=== PATIENT | female | born 1995 | race American Indian/Alaskan Native ===

== ENCOUNTER 2017-08-06 12:00 | Inpatient (IN) | payer MEDICAID ==
[2017-08-06] MEDS ORDERED: Methylergonovine 0.2 MG/1 ML Amp IM PRN (14:12)
[2017-08-06] MEDS ORDERED: Sodium Chloride 0.9% 2.5 ML Syringe FLUSH PRN (14:12)
[2017-08-06] MEDS ORDERED: Misoprostol 200 MCG Tab PO PRN (14:12)
[2017-08-06] MEDS ORDERED: Sodium Chloride 0.9% 10 ML Syringe FLUSH PRN (14:12)
[2017-08-06] MEDS ORDERED: Carboprost Tromethamine 250 MCG/1 ML Amp IM PRN (14:12)
[2017-08-06] MEDS ORDERED: Tranexamic Acid 1,000 MG in Sodium Chloride 0.9% 100 ML IV PRN (14:12)
[2017-08-06] MEDS ORDERED: Butorphanol 1 MG/ML SDV IVPUSH PRN (14:12)
[2017-08-06] MEDS ORDERED: Terbutaline 1 MG/ML SDV SUBCUT PRN (14:12)
[2017-08-06] MEDS ORDERED: Lidocaine 1% 50 ML MDV INJECT PRN (14:12)
[2017-08-06] MEDS ORDERED: Water For Irrigation,Sterile 1,000 ML Container IRR PRN (14:12)
[2017-08-06] MEDS ORDERED: Oxytocin/0.9 % Sodium Chloride 30 UNIT/500 ML BAG IV SCH ×2 (14:15)
[2017-08-06] MEDS ORDERED: Ampicillin 2 GM in Sodium Chloride 0.9% 100 ML IV ONE (14:30)
[2017-08-06] MEDS: Ampicillin 1 GM in Sodium Chloride 0.9% 50 ML IV SCH ×2 (18:41→22:34)
[2017-08-06] MEDS: Lactated Ringers 1,000 ML IV SCH ×2 (18:43→19:28)
[2017-08-06] MEDS ORDERED: Acetaminophen 325 MG Tab ONE (19:04)
--- NOTE | 2017-08-06 19:29 | PCM.PREANE ---
Preanesthetic Assessment - Anesthesia/Transfusion/Family Hx Anesthesia History: No Prior Anesthesia Transfusion History: No Prior Transfusion(s) - Physical Assessment Height: 1.68 m Weight: 99.337 kg Airway Class: Mallampati = 2 Dentition: Reports: Normal Dentition - Lab Values: Laboratory Last Values WBC 9.99 K/uL (4.0-11.0) 08/06/17 14:29 RBC 4.69 M/uL (4.30-5.90) 08/06/17 14:29 Hgb 12.9 g/dL (12.0-16.0) 08/06/17 14:29 Hct 37.8 % (36.0-46.0) 08/06/17 14:29 MCV 80.6 fL (80.0-98.0) 08/06/17 14:29 MCH 27.5 pg (27.0-32.0) 08/06/17 14:29 MCHC 34.1 g/dL (31.0-37.0) 08/06/17 14:29 RDW Std Deviation 42.6 fl (28.0-62.0) 08/06/17 14:29 RDW Coeff of Dileep 15 % (11.0-15.0) 08/06/17 14:29 Plt Count 254 K/uL (150-400) 08/06/17 14:29 MPV 10.00 fL (7.40-12.00) 08/06/17 14:29 Nucleated RBC % 0.0 /100WBC 08/06/17 14:29 Nucleated RBCs # 0 K/uL 08/06/17 14:29 Membrane Rupture POSITIVE 08/06/17 12:36 Blood Type O POSITIVE 08/06/17 14:29 Antibody Screen NEGATIVE 08/06/17 14:29 - Allergies Allergies/Adverse Reactions: Allergies Allergy/AdvReac Type Severity Reaction Status Date / Time No Known Allergies Allergy Verified 08/06/17 12:48 - Acknowledgements Anesthesia Type Planned: Epidural Pt an Appropriate Candidate for the Planned Anesthesia: Yes Alternatives and Risks of Anesthesia Discussed w Pt/Guardian: Yes Pt/Guardian Understands and Agrees with Anesthesia Plan: Yes PreAnesthesia Questionnaire - Past Health History Medical/Surgical History: Denies Medical/Surgical History Genitourinary History: Reports: Pyelonephritis 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: Endocrine/Metabolic History: Reports: Obesity/BMI 30+ - Infectious Disease History Infectious Disease History: Reports: Chicken Pox - Past Surgical History HEENT Surgical History: Reports: Other (See Below) Other HEENT Surgeries/Procedures: Mandibular mass - SUBSTANCE USE Smoking Status *Q: Former Smoker Tobacco Use Within Last Twelve Months: Cigarettes Second Hand Smoke Exposure: No Recreational Drug Use History: Yes Recreational Drug Type: Reports: Marijuana/Hashish - HOME MEDS Home Medications: Home Meds PNV #116/Iron Fumarate/FA/DHA [Expecta Combo Pack] 1 each PO DAILY [History] - CURRENT (IN HOUSE) MEDS Current Meds: Current Medications Butorphanol Tartrate (Stadol) 1 mg IVPUSH Q1H PRN PRN Reason: Pain Carboprost Tromethamine (Hemabate Ds) 250 mcg IM ASDIRECTED PRN PRN Reason: Post Hemorrhage Tranexamic Acid 1,000 mg/ (Sodium Chloride) 110 mls @ 660 mls/hr IV ONETIME PRN PRN Reason: Bleeding Lactated Ringer's (Ringers, Lactated) 1,000 mls @ 150 mls/hr IV ASDIRECTED LANI Last Admin: 08/06/17 19:28 Dose: 150 mls/hr Oxytocin/Sodium Chloride (Oxytocin 30 Unit/500 Ml-Ns) 30 unit in 500 mls @ 250 mls/hr IV TITRATE LANI Oxytocin/Sodium Chloride (Oxytocin 30 Unit/500 Ml-Ns) 30 unit in 500 mls @ 2 mls/hr IV TITRATE LANI; Protocol Last Titration: 08/06/17 17:48 Dose: 6 munits/min, 6 mls/hr Ampicillin Sodium 1 gm/ Sodium (Chloride) 50 mls @ 100 mls/hr IV Q4H LANI Last Admin: 08/06/17 18:41 Dose: 100 mls/hr Lidocaine HCl (Xylocaine 1%) 50 ml INJECT .ONCE PRN PRN Reason: Laceration repair Methylergonovine Maleate (Methergine) 0.2 mg IM ASDIRECTED PRN PRN Reason: Post Hemorrhage Misoprostol (Cytotec) 200 mcg PO .ONCE PRN PRN Reason: Post Hemorrhage Sodium Chloride (Saline Flush) 10 ml FLUSH ASDIRECTED PRN PRN Reason: Keep Vein Open Sodium Chloride (Saline Flush) 2.5 ml FLUSH ASDIRECTED PRN PRN Reason: Keep Vein Open Sterile Water (Sterile Water For Irrigation) 1,000 ml IRR ASDIRECTED PRN PRN Reason: delivery Terbutaline Sulfate (Brethine) 0.25 mg SUBCUT ASDIRECTED PRN PRN Reason: Tacysystole Discontinued Medications Acetaminophen (Tylenol) Confirm Administered Dose 325 mg .ROUTE .STK-MED ONE Stop: 08/06/17 19:05 Ampicillin Sodium 2 gm/ Sodium (Chloride) 100 mls @ 200 mls/hr IV ONETIME ONE Stop: 08/06/17 14:59 Last Admin: 08/06/17 15:05 Dose: 200 mls/hr Fentanyl/Bupivacaine HCl (Cqtkssdz-Aiwuy-Ra 2 Mcg/Ml-0.125%) Confirm Administered Dose 100 mls @ as directed EP .STK-MED ONE Stop: 08/06/17 19:07
--- NOTE | 2017-08-06 19:32 | PCM.PRNOTE ---
- Free Text/Narrative Note: Anes Note Lena moore epidural for L&D. Risks and methods were discussed. Sitting Position. Sterile Technique. Bet prep X 3. Level L3-L4, midline approach. Local 1 cc 1% lido. Epidural space easily achieved single attempt wtih ease GATITO technique. Cather threaded 3 cm with ease. Sterile dressing applied. Test nagy 3 cc 1.5 lido with epi negative. Load 10 cc pump solution, in slow divided doses. Pumps started at 8 cc hr with 6 cc q 20 minute prn bolus. Patient reports excellent analgesia. Kiran Ortiz CRNA
[2017-08-07] MEDS: Ampicillin 1 GM in Sodium Chloride 0.9% 50 ML IV SCH (02:46)
[2017-08-07] MEDS: Lactated Ringers 1,000 ML IV SCH (02:50)
[2017-08-07] MEDS ORDERED: Methylergonovine 0.2 MG/1 ML Amp IM PRN (04:56)
[2017-08-07] MEDS ORDERED: oxyCODONE 5 MG Tab PO PRN (04:56)
[2017-08-07] MEDS ORDERED: Docusate Sodium 100 MG Cap PO PRN (04:56)
[2017-08-07] MEDS ORDERED: Bisacodyl 10 MG Supp RECTAL PRN (04:56)
[2017-08-07] MEDS ORDERED: Ibuprofen 400 MG Tab PO PRN (04:56)
[2017-08-07] MEDS ORDERED: Benzocaine/Menthol 20%-0.5% Spray 78 GM Cannister TOP PRN (04:56)
[2017-08-07] MEDS ORDERED: Witch Hazel Medicated Pads 40/Jar TOP PRN (04:56)
[2017-08-07] MEDS ORDERED: Acetaminophen 500 MG Tab PO PRN ×2 (04:56)
[2017-08-07] MEDS ORDERED: Lanolin 100% Cream 7 GM Tube TOP PRN (04:56)
--- NOTE | 2017-08-07 06:42 | PCM.PRNOTE ---
- Free Text/Narrative Note: Anes Note Epidural Bag changed. New bag placed at 0255. Rate is 8 cc / hr with 6 cc q 20 min prn bolus. Patient reports excellent analgesia. Kiran Ortiz CRNA
--- NOTE | 2017-08-07 06:43 | PCM.POSTAN ---
POST ANESTHESIA ASSESSMENT - MENTAL STATUS Mental Status: Alert - RESPIRATORY Respiratory Status: Respiratory Rate WNL - CARDIOVASCULAR CV Status: Pulse Rate WNL - GASTROINTESTINAL GI Status: No Symptoms - POST OP HYDRATION Hydration Status: Adequate & Stable
--- NOTE | 2017-08-07 06:43 | PCM48HPAN ---
Post Anesthesia Note - EVALUATION WITHIN 48HRS OF ANESTHETIC Vital Signs in Normal Range: Yes Patient Participated in Evaluation: Yes Respiratory Function Stable: Yes Airway Patent: Yes Cardiovascular Function Stable: Yes Hydration Status Stable: Yes Pain Control Satisfactory: Yes Nausea and Vomiting Control Satisfactory: Yes Mental Status Recovered: Yes
--- NOTE | 2017-08-07 10:44 | OR ---
SURGEON: Simin Ridley M.D. DATE OF PROCEDURE: 08/07/2017 PREOPERATIVE DIAGNOSES: Thirty-eight and 4/7 week intrauterine , premature rupture of membranes with induction. POSTOPERATIVE DIAGNOSES: Thirty-eight and 4/7 week intrauterine , premature rupture of membranes with induction. PROCEDURE: Pitocin induction of labor, term spontaneous vaginal delivery. SURGEON: Addie Ridley MD. EVENT PLANNING MANAGER: SHIVANI Cho. ANESTHESIA: Epidural. ESTIMATED BLOOD LOSS: Less than 300 cc. FINDINGS: Live-born male, scores 8 and 9, weighing 3730 g. Placenta spontaneous, Schultze, intact with 3 vessels. Perineum intact. BRIEF HISTORY: This is a 22-year-old female, G1, P0. She presents in transfer of care at 38 weeks' gestation. Some of her laboratory studies, her 28-week labs were not available. Glucola was 139; however, her hemoglobin A1c was normal at 5.5. This lab was drawn 2 days prior to admission. Additionally, laboratory studies in [place] in January showed that she was positive for HSV-1 and HSV-2. On serology, this was repeated and was persistently positive. She denied any irritation, itching, discharge, or lesions. White light examination at the time of admission was clear, and she was admitted for Pitocin induction, initially 3 cm, 80%, -2 station. She progressed into active labor. She received an epidural for pain control. She had category 1 heart tones throughout labor. She progressed to complete. DESCRIPTION OF PROCEDURE: With the patient in dorsolithotomy position, the patient pushed over a 20-minute time period to a 5+ station, at which time the head was delivered spontaneously and atraumatically over the perineum with support with subsequent delivery of the infant's shoulders and body without any difficulty. The was bulb suctioned by nose and mouth. The cord was clamped x2 and cut, and the was handed to the mother in the presence of the nurse attending delivery. The infant is a live-born male, scores 8 and 9, weighing 3730 g. Cord blood was collected for cord ABGs, as well as routine cord blood sampling. Pitocin was initiated after delivery of the infant to assist with delivery of the placenta, which was delivered spontaneously, Schultze, intact with 3 vessels. Upon inspection of the pelvis and perineum, there were no periurethral, vaginal sidewall, cervical, rectal, or perineal lacerations. EBL was less than 300 mL. There were no known complications. Mother and remained in LDRP in good condition. JEAN CLAUDE SKELTON /[id number]
[2017-08-07] MEDS: Ibuprofen 800 MG Tab PO PRN ×2 (13:43→23:25)
--- NOTE | 2017-08-08 08:03 | PCM.PNPP ---
<Lacey Yarbrough - Last Filed: 08/08/17 07:57> - General Info Date of Service: 08/08/17 Admission Dx/Problem (Free Text): 38/4 IUP, PROM, IOL with , +HSV (no active lesions). Subjective Update: Patient is doing well. Pain is tolerable with medications. Bottle feeding. Lochia - WNL. Tolerating food with no n/v. Urinating. No bowel movement, but flatus is present. Ambulating. Anticipate discharge today. Functional Status: Reports: Pain Controlled, Tolerating Diet, Ambulating - Review of Systems General: Denies: Fever, Chills HEENT: Denies: Headaches Pulmonary: Denies: Shortness of Breath, Pleuritic Chest Pain Cardiovascular: Denies: Chest Pain, Palpitations, Lightheadedness Gastrointestinal: Reports: Flatus. Denies: Abdominal Pain, Nausea, Vomiting - General Info Date of Service: 08/08/17 - Patient Data Vital Signs - Most Recent: Last Vital Signs Temp 36.6 C 08/07/17 16:33 Pulse 83 08/08/17 06:14 Resp 15 08/08/17 06:14 BP 124/65 08/08/17 06:14 Pulse Ox 98 08/08/17 06:14 Weight - Most Recent: 99.337 kg Lab Results - Last 24 Hours: Laboratory Results - last 24 hr 08/08/17 Range/Units 05:00 Hgb 10.7 L (12.0-16.0) g/dL Hct 32.3 L (36.0-46.0) % Med Orders - Current: Current Medications Acetaminophen (Tylenol Extra Strength) 500 mg PO Q4H PRN PRN Reason: Pain Acetaminophen (Tylenol Extra Strength) 1,000 mg PO Q4H PRN PRN Reason: Pain Benzocaine/Menthol (Dermoplast Pain Relief 20%-0.5% [place]) 78 gm TOP ASDIRECTED PRN PRN Reason: Perineal Comfort Measure Bisacodyl (Dulcolax) 10 mg RECTAL .ONCE PRN PRN Reason: Constipation Docusate Sodium (Colace) 100 mg PO BID PRN PRN Reason: Constipation Emollient Ointment (Lansinoh Hpa) 0 gm TOP ASDIRECTED PRN PRN Reason: Sore Nipples Ibuprofen (Motrin) 400 mg PO Q4H PRN PRN Reason: Pain Ibuprofen (Motrin) 800 mg PO Q6H PRN PRN Reason: Pain Last Admin: 08/07/17 23:25 Dose: 800 mg Methylergonovine Maleate (Methergine) 0.2 mg IM .ONCE PRN PRN Reason: Excessive Vaginal Bleeding Oxycodone HCl (Oxycodone) 5 mg PO Q2H PRN PRN Reason: Pain Witch Ginger (Tucks) 1 pad TOP ASDIRECTED PRN PRN Reason: comfort care Discontinued Medications Acetaminophen (Tylenol) Confirm Administered Dose 325 mg .ROUTE .STK-MED ONE Stop: 08/06/17 19:05 Butorphanol Tartrate (Stadol) 1 mg IVPUSH Q1H PRN PRN Reason: Pain Carboprost Tromethamine (Hemabate Ds) 250 mcg IM ASDIRECTED PRN PRN Reason: Post Hemorrhage Tranexamic Acid 1,000 mg/ (Sodium Chloride) 110 mls @ 660 mls/hr IV ONETIME PRN PRN Reason: Bleeding Lactated Ringer's (Ringers, Lactated) 1,000 mls @ 150 mls/hr IV ASDIRECTED LANI Last Admin: 08/07/17 02:50 Dose: 150 mls/hr Oxytocin/Sodium Chloride (Oxytocin 30 Unit/500 Ml-Ns) 30 unit in 500 mls @ 250 mls/hr IV TITRATE LANI Oxytocin/Sodium Chloride (Oxytocin 30 Unit/500 Ml-Ns) 30 unit in 500 mls @ 2 mls/hr IV TITRATE LANI; Protocol Last Titration: 08/07/17 04:24 Dose: 999 munits/min, 999 mls/hr Ampicillin Sodium 2 gm/ Sodium (Chloride) 100 mls @ 200 mls/hr IV ONETIME ONE Stop: 08/06/17 14:59 Last Admin: 08/06/17 15:05 Dose: 200 mls/hr Ampicillin Sodium 1 gm/ Sodium (Chloride) 50 mls @ 100 mls/hr IV Q4H LANI Last Admin: 08/07/17 02:46 Dose: 100 mls/hr Fentanyl/Bupivacaine HCl (Xliuuols-Jgssy-Kg 2 Mcg/Ml-0.125%) Confirm Administered Dose 100 mls @ as directed EP .STK-MED ONE Stop: 08/06/17 19:07 Fentanyl/Bupivacaine HCl (Zzlaufgh-Qrsqw-Du 2 Mcg/Ml-0.125%) Confirm Administered Dose 100 mls @ as directed [facility] ONE Stop: 08/07/17 02:53 Lidocaine HCl (Xylocaine 1%) 50 ml INJECT .ONCE PRN PRN Reason: Laceration repair Methylergonovine Maleate (Methergine) 0.2 mg IM ASDIRECTED PRN PRN Reason: Post Hemorrhage Misoprostol (Cytotec) 200 mcg PO .ONCE PRN PRN Reason: Post Hemorrhage Sodium Chloride (Saline Flush) 10 ml FLUSH ASDIRECTED PRN PRN Reason: Keep Vein Open Sodium Chloride (Saline Flush) 2.5 ml FLUSH ASDIRECTED PRN PRN Reason: Keep Vein Open Sterile Water (Sterile Water For Irrigation) 1,000 ml IRR ASDIRECTED PRN PRN Reason: delivery Last Admin: 08/07/17 04:22 Dose: 1,000 ml Terbutaline Sulfate (Brethine) 0.25 mg SUBCUT ASDIRECTED PRN PRN Reason: Tacysystole - Infant Interaction Infant Disposition, : [place] in Room with Family Interaction: Holding Feeding: Bottle Fed Infant - Recovery Exam Fundal Tone: Firm Fundal Level: 3 Fingerbreadths Below Umbilicus Fundal Placement: Midline Lochia Amount: Scant Lochia Color: Rubra/Red Episiotomy/Laceration: None Bladder Status: Voiding Urinary Elimination: Voided - Exam General: Alert, Oriented, No Acute Distress Lungs: Clear to Auscultation, Normal Respiratory Effort Cardiovascular: Regular Rate, Regular Rhythm GI/Abdominal Exam: Soft, Non-Tender Extremities: No Pedal Edema Skin: Warm, Dry Psy/Mental Status: Alert - Assessment Assessment:: 38/4 IUP, PROM, IOL with . PPD #1. Stable. Discharge today. - Plan Plan:: Reviewed discharge instructions. Pelvic rest for 6 weeks. Take OTC tylenol/ ibuprofen as needed for pain. Call if fever greater than 101 or bleeding through a heavy pad in an hour. Reviewed post- depression symptoms. Follow-up appointment in 6 weeks. <Simin Ridley - Last Filed: 08/08/17 08:07> - Patient Data Vital Signs - Most Recent: Last Vital Signs Temp 36.6 C 04/27/18 07:30 Pulse 74 08/08/17 07:30 Resp 16 08/08/17 07:30 BP 116/71 08/08/17 07:30 Pulse Ox 97 08/08/17 07:30 Lab Results - Last 24 Hours: Laboratory Results - last 24 hr 08/08/17 Range/Units 05:00 Hgb 10.7 L (12.0-16.0) g/dL Hct 32.3 L (36.0-46.0) % Med Orders - Current: Current Medications Acetaminophen (Tylenol Extra Strength) 500 mg PO Q4H PRN PRN Reason: Pain Acetaminophen (Tylenol Extra Strength) 1,000 mg PO Q4H PRN PRN Reason: Pain Benzocaine/Menthol (Dermoplast Pain Relief 20%-0.5% [place]) 78 gm TOP ASDIRECTED PRN PRN Reason: Perineal Comfort Measure Bisacodyl (Dulcolax) 10 mg RECTAL .ONCE PRN PRN Reason: Constipation Docusate Sodium (Colace) 100 mg PO BID PRN PRN Reason: Constipation Emollient Ointment (Lansinoh Hpa) 0 gm TOP ASDIRECTED PRN PRN Reason: Sore Nipples Ibuprofen (Motrin) 400 mg PO Q4H PRN PRN Reason: Pain Ibuprofen (Motrin) 800 mg PO Q6H PRN PRN Reason: Pain Last Admin: 08/07/17 23:25 Dose: 800 mg Methylergonovine Maleate (Methergine) 0.2 mg IM .ONCE PRN PRN Reason: Excessive Vaginal Bleeding Oxycodone HCl (Oxycodone) 5 mg PO Q2H PRN PRN Reason: Pain Witch Ginger (Tucks) 1 pad TOP ASDIRECTED PRN PRN Reason: comfort care Discontinued Medications Acetaminophen (Tylenol) Confirm Administered Dose 325 mg .ROUTE .STK-MED ONE Stop: 08/06/17 19:05 Butorphanol Tartrate (Stadol) 1 mg IVPUSH Q1H PRN PRN Reason: Pain Carboprost Tromethamine (Hemabate Ds) 250 mcg IM ASDIRECTED PRN PRN Reason: Post Hemorrhage Tranexamic Acid 1,000 mg/ (Sodium Chloride) 110 mls @ 660 mls/hr IV ONETIME PRN PRN Reason: Bleeding Lactated Ringer's (Ringers, Lactated) 1,000 mls @ 150 mls/hr IV ASDIRECTED LANI Last Admin: 08/07/17 02:50 Dose: 150 mls/hr Oxytocin/Sodium Chloride (Oxytocin 30 Unit/500 Ml-Ns) 30 unit in 500 mls @ 250 mls/hr IV TITRATE LANI Oxytocin/Sodium Chloride (Oxytocin 30 Unit/500 Ml-Ns) 30 unit in 500 mls @ 2 mls/hr IV TITRATE LANI; Protocol Last Titration: 08/07/17 04:24 Dose: 999 munits/min, 999 mls/hr Ampicillin Sodium 2 gm/ Sodium (Chloride) 100 mls @ 200 mls/hr IV ONETIME ONE Stop: 08/06/17 14:59 Last Admin: 08/06/17 15:05 Dose: 200 mls/hr Ampicillin Sodium 1 gm/ Sodium (Chloride) 50 mls @ 100 mls/hr IV Q4H LANI Last Admin: 08/07/17 02:46 Dose: 100 mls/hr Fentanyl/Bupivacaine HCl (Szruwjhw-Ihhzd-Qn 2 Mcg/Ml-0.125%) Confirm Administered Dose 100 mls @ as directed EP .STK-MED ONE Stop: 08/06/17 19:07 Fentanyl/Bupivacaine HCl (Jtrqjpwc-Eqkyr-Ej 2 Mcg/Ml-0.125%) Confirm Administered Dose 100 mls @ as directed EP .STK-MED ONE Stop: 08/07/17 02:53 Lidocaine HCl (Xylocaine 1%) 50 ml INJECT .ONCE PRN PRN Reason: Laceration repair Methylergonovine Maleate (Methergine) 0.2 mg IM ASDIRECTED PRN PRN Reason: Post Hemorrhage Misoprostol (Cytotec) 200 mcg PO .ONCE PRN PRN Reason: Post Hemorrhage Sodium Chloride (Saline Flush) 10 ml FLUSH ASDIRECTED PRN PRN Reason: Keep Vein Open Sodium Chloride (Saline Flush) 2.5 ml FLUSH ASDIRECTED PRN PRN Reason: Keep Vein Open Sterile Water (Sterile Water For Irrigation) 1,000 ml IRR ASDIRECTED PRN PRN Reason: delivery Last Admin: 08/07/17 04:22 Dose: 1,000 ml Terbutaline Sulfate (Brethine) 0.25 mg SUBCUT ASDIRECTED PRN PRN Reason: Tacysystole - Problem List Review Problem List Initiated/Reviewed/Updated: Yes - Assessment Assessment:: I examined patient and agree with above. Dismiss to home today, discussed discharge instructions.
[2017-08-08] MEDS: Ibuprofen 800 MG Tab PO PRN (09:15)
== END 2017-08-08 13:50 | disposition home or self-care (01) | DRG 775 ==
LOC: MW.OBCHECK 12:00 → MW.OB 12:02 → MW.OBCHECK 14:12 → MW.OB 14:12 → OBSVTOIN 08-07 04:24 → MW.OB 08-07 10:28
PROVIDERS: ADMIT Obstetrics & Gynecology; ATTEND Obstetrics & Gynecology
PROC: 10E0XZZ Delivery of Products of Conception, External Approach (ICD-10-PCS; principal; 2017-08-07)
PROC: 3E033VJ Introduction of Other Hormone into Peripheral Vein, Percutaneous Approach (ICD-10-PCS; 2017-08-07)
DX: O42.02 Full-term premature rupture of membranes, onset of labor within 24 hours of rupture (principal); B00.9 Herpesviral infection, unspecified; Z3A.38 38 weeks gestation of pregnancy; Z37.0 Single live birth
CPT/HCPCS: 01967; 36415; 51702; 59025; 59409; 82803; 84112; 85014; 85018; 85027; 86850; 86900; 86901; A9270-GY; J0290; J2590; J7030; J7050; J7120

== ENCOUNTER 2017-08-10 11:20 | Emergency (ER) | payer MEDICAID ==
--- NOTE | 2017-08-10 12:12 | EDM.PDOC ---
ED HPI GENERAL MEDICAL PROBLEM - General Chief Complaint: ENT Problem Stated Complaint: SWOLLEN THROAT Time Seen by Provider: 08/10/17 12:07 Source of Information: Reports: Patient - History of Present Illness INITIAL COMMENTS - FREE TEXT/NARRATIVE: HISTORY AND PHYSICAL: History of present illness: [Patient is had a cystic lesion under her chin for one year followed by Dr. Bennett out of [facility] ear nose throat physician. Removal was considered one year prior however patient became elected to wait for surgery she did have a what sounds to be a needle drainage performed in the interim, however she notices some further swelling today there is no redness warmth or exudate no open lesion patient speaks clearly in full sentences no difficulty with swallowing food eating drinking voiding and stooling well No fever nausea vomiting chills sweats Patient states that her physician generally wants her on antibiotics for one week prior to drainage and at this time will likely be considering an excision as the patient is no longer ] Review of systems: As per history of present illness and below otherwise all systems reviewed and negative. Past medical history: As per history of present illness and as reviewed below otherwise noncontributory. Surgical history: As per history of present illness and as reviewed below otherwise noncontributory. Social history: No reported history of drug or alcohol abuse. Family history: As per history of present illness and as reviewed below otherwise noncontributory. Physical exam: HEENT: Atraumatic, normocephalic, pupils reactive, negative for conjunctival pallor or scleral icterus, mucous membranes moist, throat clear, neck supple, nontender, trachea midline. cystic mobile lesion submandibular area approximately the size of a golf ball near the chin no redness warmth or exudate nontender Lungs: Clear to auscultation, breath sounds equal bilaterally, chest nontender. Heart: S1S2, regular, negative for clicks, rubs, or JVD. Abdomen: Soft, nondistended, nontender. Negative for masses or hepatosplenomegaly. Negative for costovertebral tenderness. Pelvis: Stable nontender. Genitourinary: Deferred. Rectal: Deferred. Extremities: Atraumatic, negative for cords or calf pain. Neurovascular unremarkable. Neuro: Awake, alert, oriented. Cranial nerves II through XII unremarkable. Cerebellum unremarkable. Motor and sensory unremarkable throughout. Exam nonfocal. Diagnostics: [Clinical ] Therapeutics: [ Bactrim double strength by mouth twice a day #20 no refill ] Impression: [ chronic cyst lesion ] Definitive disposition and diagnosis as appropriate pending reevaluation and review of above. - Related Data Allergies Allergy/AdvReac Type Severity Reaction Status Date / Time No Known Allergies Allergy Verified 08/10/17 11:54 Home Meds: Home Meds . 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 : Reports: Dialysis OBGYN: Reports: Musculoskeletal: Reports: Osteoarthritis Endocrine/Metabolic: Reports: Diabetes, type II, Obesity/MBI 30+ - Tobacco Use Smoking Status *Q: Current Every Day Smoker Years of Tobacco use: 8 Packs/Tins Daily: 0.2 Used Tobacco, but Quit: Yes Month/Year Tobacco Last Used: July, Second Hand Smoke Exposure: No - Caffeine Use Caffeine Use: Reports: None - Recreational Drug Use Recreational Drug Use: Yes Drug Use in Last 12 Months: Yes Recreational Drug Type: Reports: Marijuana/Hashish Recreational Drug Use Frequency: Not Used In Over 1 Month ED ROS GENERAL - Review of Systems Review Of Systems: ROS reveals no pertinent complaints other than HPI. ED EXAM, GENERAL - Physical Exam Exam: See Below Course - Vital Signs Last Recorded V/S: Last Vital Signs Temp 97.7 F 08/10/17 11:50 Pulse 103 H 08/10/17 11:50 Resp 18 08/10/17 11:50 BP 125/76 08/10/17 11:50 Pulse Ox 97 08/10/17 11:50 Departure - Departure Time of Disposition: 12:10 Disposition: Home, Self-Care 01 Condition: Good Clinical Impression: Cyst - Discharge Information Referrals: PCP,None [Primary Care Provider] - Additional Instructions: Medication as prescribed Return if symptoms persist or worsen or fever nausea vomiting chills sweats difficulty swallowing or breathing should this develop however unlikely as the lesion has been present for one year Follow-up with Dr. Bennett at [facility] in one week The following information is given to patients seen in the emergency department who are being discharged to home. This information is to outline your options for follow-up care. We provide all patients seen in our emergency department with a follow-up referral. The need for follow-up, as well as the timing and circumstances, are variable depending upon the specifics of your emergency department visit. If you don't have a primary care physician on staff, we will provide you with a referral. We always advise you to contact your personal physician following an emergency department visit to inform them of the circumstance of the visit and for follow-up with them and/or the need for any referrals to a consulting specialist. The emergency department will also refer you to a specialist when appropriate. This referral assures that you have the opportunity for follow-up care with a specialist. All of these measure are taken in an effort to provide you with optimal care, which includes your follow-up. Under all circumstances we always encourage you to contact your private physician who remains a resource for coordinating your care. When calling for follow-up care, please make the office aware that this follow-up is from your recent emergency room visit. If for any reason you are refused follow-up, please contact the [facility] emergency department at and asked to speak to the emergency department charge nurse.
== END 2017-08-10 12:25 | disposition home or self-care (01) ==
LOC: MW.ED 11:20
DX: L72.9 Follicular cyst of the skin and subcutaneous tissue, unspecified (principal); F17.210 Nicotine dependence, cigarettes, uncomplicated
CPT/HCPCS: 99282

== ENCOUNTER 2019-07-02 08:38 | Emergency (ER) | payer MEDICAID ==
[2019-07-02] MEDS ORDERED: Clindamycin Phosphate in D5W 900 MG in Premix Bag 1 BAG IV ONE ×2 (10:07)
[2019-07-02] MEDS ORDERED: Dexamethasone 10 MG/ML SDV IVPUSH ONE ×2 (10:08→10:12)
--- NOTE | 2019-07-02 10:17 | EDM.PDOC ---
ED HPI GENERAL MEDICAL PROBLEM - General Chief Complaint: ENT Problem Stated Complaint: SORE THROAT Time Seen by Provider: 07/02/19 09:53 Source of Information: Reports: Patient History Limitations: Reports: No Limitations - History of Present Illness INITIAL COMMENTS - FREE TEXT/NARRATIVE: HISTORY AND PHYSICAL: History of present illness: Patient is a 24-year-old female who presents to the ED today with concern of sore throat on the right side of her tonsil. Patient states this is been ongoing over the last several days. Patient states several days ago she used methamphetamine and when she woke up she had a sore throat only on the right side and thinks it is related to the methamphetamine use. Patient states since then she is continued to have a sore throat but only on the right side and states it does radiate into the right ear. Patient states she has had pain with swallowing solid foods but she has been able to drink liquids. Patient denies any health history or any other symptoms or concerns. Patient denies fever, chills, chest pain, shortness of breath, or cough. Denies headache, neck stiff ness, change in vision, syncope, or near syncope. Denies nausea, vomiting, abdominal pain, diarrhea, constipation, or dysuria. Has not noted any blood in urine or stool. Patient has been eating and drinking appropriately. Review of systems: As per history of present illness and below otherwise all systems reviewed and negative. Past medical history: As per history of present illness and as reviewed below otherwise noncontributory. Surgical history: As per history of present illness and as reviewed below otherwise noncontributory. Social history: See social history for further information Family history: As per history of present illness and as reviewed below otherwise noncontributory. Physical exam: General: Patient is alert, oriented, and in no acute distress. Patient sitting comfortably on exam table. HEENT: Atraumatic, normocephalic, pupils equal and reactive bilaterally, negative for conjunctival pallor or scleral icterus, mucous membranes moist, TMs normal bilaterally, right tonsil is enlarged with white exudate and does touch the uvula but uvula not obviously shifted, neck supple, nontender, trachea midline. No drooling but mild trismus noted. No meningeal signs. No hot potato voice noted. Lungs: Clear to auscultation, breath sounds equal bilaterally, chest nontender. Heart: S1S2, regular rate and rhythm without overt murmur Abdomen: Soft, nondistended, nontender. Negative for masses or hepatosplenomegaly. Negative for costovertebral tenderness. Pelvis: Stable nontender. Genitourinary: Deferred. Rectal: Deferred. Skin: Intact, warm, dry. No lesions or rashes noted. Extremities: Atraumatic, negative for cords or calf pain. Neurovascular unremarkable. Neuro: Awake, alert, oriented. Cranial nerves II through XII unremarkable. Cerebellum unremarkable. Motor and sensory unremarkable throughout. Exam nonfocal. Notes: I did call and speak to securities research analyst at [facility], Dr. Segundo Cotton, and thoroughly discussed patient's case. Dr. Cotton recommendation is that this is a very early abscess and thinks that patient would qualify for outpatient treatment. Dr. Cotton recommends clindamycin for 10 days and does not think that a steroid for home is necessary given that she was given 10 of Decadron here in the ED. I did offer admission for observation to patient but she declines at this time requesting outpatient treatment. All risks versus benefits discussed with patient and expresses understanding. Voices understanding and is agreeable to plan of care. Denies any further questions or concerns at this time. Diagnostics: CBC, CMP, Hcg, Soft tissue neck ct w contrast, strep, lactate, blood culture x 2 Therapeutics: Clindamycin, Decadron Prescription: Clindamycin Impression: Peritonsillar abscess, early Plan: 1. Take medication as prescribed. You can alternate ibuprofen and Tylenol as directed for pain and discomfort. 2. Follow-up with the securities research analyst as well as your primary care provider as discussed. The number has been provided above for you to call and establish an appointment time. 3. Return to the ED as needed and as discussed. Definitive disposition and diagnosis as appropriate pending reevaluation and review of above. Throat Pain Score (Numeric/FACES): 8 - Related Data Allergies Allergy/AdvReac Type Severity Reaction Status Date / Time No Known Allergies Allergy Verified 07/02/19 09:51 Home Meds: Home Meds . 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 : Reports: Dialysis OBGYN: Reports: Musculoskeletal: Reports: Osteoarthritis Endocrine/Metabolic: Reports: Diabetes, type II, Obesity/MBI 30+ - Tobacco Use Smoking Status *Q: Current Every Day Smoker Years of Tobacco use: 10 Packs/Tins Daily: 1 - Caffeine Use Caffeine Use: Reports: Coffee, Energy Drinks, Soda, Tea - Alcohol Use Number of Drinks Per Day: 4 - Recreational Drug Use Recreational Drug Use: Yes Recreational Drug Type: Reports: Methamphetamine Other Recreational Drug Type: Meth 2 days ago. Recreational Drug Use Frequency: Socially ED ROS GENERAL - Review of Systems Review Of Systems: Comprehensive ROS is negative, except as noted in HPI. ED EXAM, GENERAL - Physical Exam Exam: See Below (see dictation) Course - Vital Signs Last Recorded V/S: Last Vital Signs Temp 97.8 F 07/02/19 09:49 Pulse 103 H 07/02/19 12:21 Resp 18 07/02/19 12:21 BP 119/75 07/02/19 12:21 Pulse Ox 98 07/02/19 12:21 - Orders/Labs/Meds Orders: Active Orders 24 hr Category Date Time Status CULTURE BLOOD [BC] Stat Lab 07/02/19 11:52 Results CULTURE BLOOD [BC] Stat Lab 07/02/19 12:25 Received CULTURE STREP A CONFIRMATION [RM] Stat Lab 07/02/19 10:25 Results STREP SCRN A RAPID W CULT CONF [RM] Stat Lab 07/02/19 10:25 Results Blood Culture x2 Reflex Set [OM.PC] Stat Oth 07/02/19 10:52 Ordered Labs: Laboratory Tests 07/02/19 07/02/19 07/02/19 Range/Units 10:25 10:44 10:44 WBC 23.59 H (4.0-11.0) K/uL RBC 4.97 (4.30-5.90) M/uL Hgb 13.8 (12.0-16.0) g/dL Hct 42.1 (36.0-46.0) % MCV 84.7 (80.0-98.0) fL MCH 27.8 (27.0-32.0) pg MCHC 32.8 (31.0-37.0) g/dL RDW Std Deviation 42.3 (28.0-62.0) fl RDW Coeff of Dileep 14 (11.0-15.0) % Plt Count 293 (150-400) K/uL MPV 9.00 (7.40-12.00) fL Neut % (Auto) 85.0 H (48.0-80.0) % Lymph % (Auto) 8.6 L (16.0-40.0) % Coleman % (Auto) 5.6 (0.0-15.0) % Eos % (Auto) 0.7 (0.0-7.0) % Baso % (Auto) 0.1 (0.0-1.5) % Neut # (Auto) 20.1 H (1.4-5.7) K/uL Lymph # (Auto) 2.0 (0.6-2.4) K/uL Coleman # (Auto) 1.3 H (0.0-0.8) K/uL Eos # (Auto) 0.2 (0.0-0.7) K/uL Baso # (Auto) 0.0 (0.0-0.1) K/uL Nucleated RBC % 0.0 /100WBC Nucleated RBCs # 0 K/uL Lactate (0.20-2.00) mmol/L Sodium 138 (136-145) mmol/L Potassium 3.9 (3.5-5.1) mmol/L Chloride 100 (98-107) mmol/L Carbon Dioxide 28.7 (21.0-32.0) mmol/L BUN 7 (7.0-18.0) mg/dL Creatinine 0.7 (0.6-1.0) mg/dL Est Cr Clr Drug Dosing 118.01 mL/min Estimated GFR (MDRD) > 60.0 ml/min Glucose 101 (74-106) mg/dL Calcium 9.2 (8.5-10.1) mg/dL Total Bilirubin 0.9 (0.2-1.0) mg/dL AST 18 (15-37) IU/L ALT 42 (14-63) IU/L Alkaline Phosphatase 123 H (46-116) U/L Total Protein 7.5 (6.4-8.2) g/dL Albumin 3.6 (3.4-5.0) g/dL Globulin 3.9 (2.6-4.0) g/dL Albumin/Globulin Ratio 0.9 (0.9-1.6) Urine HCG, Qual NEGATIVE (NEGATIVE) 07/02/19 Range/Units 12:25 WBC (4.0-11.0) K/uL RBC (4.30-5.90) M/uL Hgb (12.0-16.0) g/dL Hct (36.0-46.0) % MCV (80.0-98.0) fL MCH (27.0-32.0) pg MCHC (31.0-37.0) g/dL RDW Std Deviation (28.0-62.0) fl RDW Coeff of Dileep (11.0-15.0) % Plt Count (150-400) K/uL MPV (7.40-12.00) fL Neut % (Auto) (48.0-80.0) % Lymph % (Auto) (16.0-40.0) % Coleman % (Auto) (0.0-15.0) % Eos % (Auto) (0.0-7.0) % Baso % (Auto) (0.0-1.5) % Neut # (Auto) (1.4-5.7) K/uL Lymph # (Auto) (0.6-2.4) K/uL Coleman # (Auto) (0.0-0.8) K/uL Eos # (Auto) (0.0-0.7) K/uL Baso # (Auto) (0.0-0.1) K/uL Nucleated RBC % /100WBC Nucleated RBCs # K/uL Lactate 0.8 (0.20-2.00) mmol/L Sodium (136-145) mmol/L Potassium (3.5-5.1) mmol/L Chloride (98-107) mmol/L Carbon Dioxide (21.0-32.0) mmol/L BUN (7.0-18.0) mg/dL Creatinine (0.6-1.0) mg/dL Est Cr Clr Drug Dosing mL/min Estimated GFR (MDRD) ml/min Glucose (74-106) mg/dL Calcium (8.5-10.1) mg/dL Total Bilirubin (0.2-1.0) mg/dL AST (15-37) IU/L ALT (14-63) IU/L Alkaline Phosphatase (46-116) U/L Total Protein (6.4-8.2) g/dL Albumin (3.4-5.0) g/dL Globulin (2.6-4.0) g/dL Albumin/Globulin Ratio (0.9-1.6) Urine HCG, Qual (NEGATIVE) Meds: Medications Discontinued Medications Generic Name Dose Route Start Last Admin Trade Name Freq PRN Reason Stop Dose Admin Dexamethasone 10 mg 07/02/19 10:08 07/02/19 10:50 Dexamethasone IVPUSH 07/02/19 10:09 Not Given ONETIME ONE Dexamethasone 10 mg 07/02/19 10:12 07/02/19 10:47 Dexamethasone IVPUSH 07/02/19 10:13 10 mg ONETIME ONE Administration Clindamycin Phosphate 900 mg/ 50 mls @ 100 mls/hr 07/02/19 10:07 07/02/19 10: 47 Premix IV 07/02/19 10:36 100 mls/hr ONETIME ONE Administration Iopamidol 75 ml 07/02/19 11:59 07/02/19 12:08 Isovue Multipack-370 (76%) IVPUSH 07/02/19 12:00 75 ml ONETIME STA Administration Departure - Departure Time of Disposition: 12:46 Disposition: Home, Self-Care 01 Clinical Impression: Peritonsillar abscess - Discharge Information Referrals: PCP,None [Primary Care Provider] - Forms: ED Department Discharge Additional Instructions: The following information is given to patients seen in the emergency department who are being discharged to home. This information is to outline your options for follow-up care. We provide all patients seen in our emergency department with a follow-up referral. The need for follow-up, as well as the timing and circumstances, are variable depending upon the specifics of your emergency department visit. If you don't have a primary care physician on staff, we will provide you with a referral. We always advise you to contact your personal physician following an emergency department visit to inform them of the circumstance of the visit and for follow-up with them and/or the need for any referrals to a consulting specialist. The emergency department will also refer you to a specialist when appropriate. This referral assures that you have the opportunity for follow-up care with a specialist. All of these measure are taken in an effort to provide you with optimal care, which includes your follow-up. Under all circumstances we always encourage you to contact your private physician who remains a resource for coordinating your care. When calling for follow-up care, please make the office aware that this follow-up is from your recent emergency room visit. If for any reason you are refused follow-up, please contact the [facility] Emergency Department at and asked to speak to the emergency department charge nurse. [facility] [address] [place] [id number] [address] Ear Nose and Throat, Dr. Segundo Cotton [address] [facility] [address] [place] [address] 1. Take medication as prescribed. You can alternate ibuprofen and Tylenol as directed for pain and discomfort. 2. Follow-up with the securities research analyst as well as your primary care provider as discussed. The number has been provided above for you to call and establish an appointment time. 3. Return to the ED as needed and as discussed. Sepsis Event Note - Evaluation Sepsis Screening Result: No Definite Risk - Focused Exam Vital Signs: Vital Signs Temp Pulse Resp BP Pulse Ox 07/02/19 12:21 103 H 18 119/75 98 07/02/19 10:50 99 20 136/81 100 07/02/19 09:49 97.8 F 104 H 17 137/75 97 Date Exam was Performed: 07/02/19 Time Exam was Performed: 12:46 - My Orders Last 24 Hours: My Active Orders 07/02/19 10:25 CULTURE STREP A CONFIRMATION [RM] Stat STREP SCRN A RAPID W CULT CONF [RM] Stat 07/02/19 10:52 Blood Culture x2 Reflex Set [OM.PC] Stat 07/02/19 11:52 CULTURE BLOOD [BC] Stat 07/02/19 12:25 CULTURE BLOOD [BC] Stat - Assessment/Plan Last 24 Hours: My Active Orders 07/02/19 10:25 CULTURE STREP A CONFIRMATION [RM] Stat STREP SCRN A RAPID W CULT CONF [RM] Stat 07/02/19 10:52 Blood Culture x2 Reflex Set [OM.PC] Stat 07/02/19 11:52 CULTURE BLOOD [BC] Stat 07/02/19 12:25 CULTURE BLOOD [BC] Stat
[2019-07-02 11:18] LABS: BLOOD UREA NITROGEN,BUN 7 mg/dL (7.0-18.0); CARBON DIOXIDE,CO2 28.7 mmol/L (21.0-32.0); CHLORIDE,CL 100 mmol/L (98-107); GLUCOSE RANDOM 101 mg/dL (74-106); POTASSIUM,K 3.9 mmol/L (3.5-5.1); SODIUM,NA 138 mmol/L (136-145)
[2019-07-02] MEDS ORDERED: Iopamidol 755 MG/ML 500 ML Multipack Bottle IVPUSH STA (11:59)
--- NOTE | 2019-07-02 12:28 | CT ---
CT neck Technique: Multiple axial sections through the neck were obtained. Intravenous contrast was utilized. Findings: [place] tonsils are enlarged on both sides. Small low density low density area is seen next to the right palatine tonsil posteriorly which measures 1.5 cm. This is suspicious for early peritonsillar abscess. No other abnormalities are seen around the tonsils. Prevertebral soft tissues are normal. Epiglottis is normal. Uvula appears to be swollen. Visualized paranasal sinuses show nothing acute. Submandibular and parotid salivary glands are within normal limits. Slightly prominent lymph nodes are seen within the neck which are likely reactive. Visualized lung apices show nothing acute. Impression: 1. Enlarged palatine tonsils on both sides. 2. Low density area next to the right palatine tonsil posteriorly suspicious for early peritonsillar abscess measuring approximately 1.5 cm. 3. Mildly prominent lymph nodes within the neck believed to be reactive. Diagnostic code #3 This report was dictated in MDT
== END 2019-07-02 13:06 | disposition home or self-care (01) ==
LOC: MW.ED 08:38
DX: J36 Peritonsillar abscess (principal); F17.210 Nicotine dependence, cigarettes, uncomplicated
CPT/HCPCS: 36415; 70491; 80053; 81025; 83605; 85025; 87040; 87081; 87880; 96365; 96366; 96375; 99283; J1100; J3490; Q9967

== ENCOUNTER 2020-08-07 09:28 | Inpatient (IN) | payer MEDICAID ==
[2020-08-07] MEDS ORDERED: Lidocaine 1% 50 ML MDV INJECT PRN (10:59)
[2020-08-07] MEDS ORDERED: Sodium Chloride 0.9% 10 ML SDV IV PRN (10:59)
[2020-08-07] MEDS ORDERED: Sodium Chloride 0.9% 2.5 ML Syringe FLUSH PRN (10:59)
[2020-08-07] MEDS ORDERED: Misoprostol 200 MCG Tab PO PRN (10:59)
[2020-08-07] MEDS ORDERED: Water For Irrigation,Sterile 1,000 ML Container IRR PRN (10:59)
[2020-08-07] MEDS ORDERED: Nalbuphine 10 MG/1 ML Vial IVPUSH PRN (10:59)
[2020-08-07] MEDS ORDERED: Carboprost Tromethamine 250 MCG/1 ML Amp IM PRN (10:59)
[2020-08-07] MEDS ORDERED: Butorphanol 1 MG/ML SDV IVPUSH PRN (10:59)
[2020-08-07] MEDS ORDERED: Sodium Chloride 0.9% 10 ML Syringe FLUSH PRN (10:59)
[2020-08-07] MEDS ORDERED: Methylergonovine 0.2 MG/1 ML Amp IM PRN (10:59)
[2020-08-07] MEDS ORDERED: Tranexamic Acid 1,000 MG in Sodium Chloride 0.9% 100 ML IV PRN (10:59)
[2020-08-07] MEDS ORDERED: Oxytocin/0.9 % Sodium Chloride 30 UNIT/500 ML BAG IV SCH ×2 (11:00→15:30)
[2020-08-07] MEDS ORDERED: Misoprostol 50 MCG (1/2 of 100 MCG) Tab PO ONE (11:02)
--- NOTE | 2020-08-07 12:28 | PCM.LDHP ---
L&D History of Present Illness - General Date of Service: 08/07/20 Admit Problem/Dx: Patient Status Order with Admit Dx/Problem 08/07/20 09:42 Patient Status [ADT] Routine 08/07/20 11:10 Admission Status [Patient Status] [ADT] Routine Admission Diagnosis/Problem Admission Diagnosis/Problem 08/07/20 12:23 presenting to L&D at 40 5/7 weeks (BERNARD: 08/02/20 by LMP and confirmed with early ultrasound) with reports of SROM at approximately 0200 this AM (08/07); amnisure positive. GBS negative, Rubella immune, and O+. Vertex by Perry[employer]. Rare contractions. Leaking clear fluid. 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 08/07/20 12:29 Source of Information: Patient History Limitations: Reports: No Limitations - Related Data Allergies/Adverse Reactions: Allergies Allergy/AdvReac Type Severity Reaction Status Date / Time No Known Allergies Allergy Verified 08/07/20 12:13 Home Medications: Home Meds . 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 : Reports: Dialysis OBGYN: Reports: Musculoskeletal: Reports: Osteoarthritis Endocrine/Metabolic: Reports: Diabetes, type II, Obesity/MBI 30+ - Caffeine Use Caffeine Use: Reports: Coffee, Energy Drinks, Soda, Tea H&P Review of Systems - Review of Systems: Review Of Systems: See Below General: Reports: No Symptoms HEENT: Reports: No Symptoms Pulmonary: Reports: No Symptoms Cardiovascular: Reports: No Symptoms Gastrointestinal: Reports: No Symptoms Genitourinary: Reports: No Symptoms Musculoskeletal: Reports: No Symptoms Skin: Reports: No Symptoms Psychiatric: Reports: No Symptoms Neurological: Reports: No Symptoms Hematologic/Lymphatic: Reports: No Symptoms Immunologic: Reports: No Symptoms L&D Exam - Exam Exam: See Below - Vital Signs Weight: 240 lb - OB Specific Movement: Active Heart Tones: Present Heart Rate (FHR) Variability: Moderate (6-25 bmp) Presentation: Vertex - Exam General: Alert, Oriented, Cooperative Lungs: Normal Respiratory Effort Cardiovascular: Regular Rate, Regular Rhythm GI/Abdominal Exam: Soft, Non-Tender Rectal Exam: Deferred Genitourinary: Deferred Back Exam: Normal Inspection, Full Range of Motion Extremities: Normal Inspection, Normal Range of Motion, Normal Capillary Refill Skin: Warm, Dry, Intact Neurological: Strength Equal Bilateral, Normal Gait, Normal Speech, Normal Tone, Sensation Intact Psychiatric: Alert, Normal Affect, Normal Mood - Patient Data Lab Results Last 24 hrs: Laboratory Results - last 24 hr 08/07/20 Range/Units 09:35 Membrane Rupture POSITIVE - Problem List (1) Supervision of normal IUP (intrauterine ) in multigravida SNOMED Code(s): 160472948, 797164072, [id number] ICD Code: Z34.80 - ENCOUNTER FOR SUPRVSN OF NORMAL , UNSP TRIMESTER Status: Acute Priority: High Current Visit: Yes Qualifiers: Trimester: third trimester Qualified Code(s): Z34.83 - Encounter for supervision of other normal , third trimester Problem List Initiated/Reviewed/Updated: Yes Orders Last 24hrs: Active Orders 24 hr Category Date Time Status Admission Status [Patient Status] [ADT] Routine ADT 08/07/20 11:10 Active Patient Status [ADT] Routine ADT 08/07/20 09:42 Active Heart Tones [RC] CONTINUOUS Care 08/07/20 11:00 Active Non Stress Test [RC] PER UNIT ROUTINE Care 08/07/20 09:42 Active Notify Provider [RC] PRN Care 08/07/20 11:00 Active Up ad Julissa [RC] ASDIRECTED Care 08/07/20 09:42 Active Up ad Julissa [RC] ASDIRECTED Care 08/07/20 11:00 Active Vaginal Exam [RC] Click to Edit Care 08/07/20 09:42 Active Vital Signs [RC] PER UNIT ROUTINE Care 08/07/20 09:42 Active CBC W/O DIFF,HEMOGRAM [HEME] Routine Lab 08/07/20 12:00 Received CORONAVIRUS COVID-19 SHELLIE [MOLEC] Stat Lab 08/07/20 12:05 Received RPR (SYPHILIS SERO) W/ RFLX [REF] Routine Lab 08/07/20 12:00 Received TYPE AND SCREEN [BBK] Routine Lab 08/07/20 12:00 Received Butorphanol [Stadol] Med 08/07/20 10:59 Active 1 mg IVPUSH Q1H PRN Carboprost Tromethamine [Hemabate DS] Med 08/07/20 10:59 Active 250 mcg IM ASDIRECTED PRN Lactated Ringers [Ringers, Lactated] 1,000 ml Med 08/07/20 11:00 Active IV ASDIRECTED Lidocaine 1% [Xylocaine 1%] Med 08/07/20 10:59 Active 50 ml INJECT ONETIME PRN Methylergonovine [Methergine] Med 08/07/20 10:59 Active 0.2 mg IM ASDIRECTED PRN Nalbuphine [Nubain] Med 08/07/20 10:59 Active 10 mg IVPUSH Q1H PRN Oxytocin/0.9 % Sodium Chloride [Oxytocin 30 Unit/500 ML Med 08/07/20 11:00 Active -NS] 30 unit in 500 ml IV TITRATE Sodium Chloride 0.9% [Normal Saline] Med 08/07/20 10:59 Active 10 ml IV ASDIRECTED PRN Sodium Chloride 0.9% [Saline Flush] Med 08/07/20 10:59 Active 10 ml FLUSH ASDIRECTED PRN Sodium Chloride 0.9% [Saline Flush] Med 08/07/20 10:59 Active 2.5 ml FLUSH ASDIRECTED PRN Tranexamic Acid [Cyklokapron] 1,000 mg Med 08/07/20 10:59 Active Sodium Chloride 0.9% [Normal Saline] 100 ml IV ONETIME Water For Irrigation,Sterile [Sterile Water for Med 08/07/20 10:59 Active Irrigation] 1,000 ml IRR ASDIRECTED PRN miSOPROStoL [Cytotec] Med 08/07/20 10:59 Active 200 mcg PO ONETIME PRN Scalp Electrode [WOMSER] Per Unit Routine Oth 08/07/20 11:00 Ordered Peripheral IV Insertion Adult [OM.PC] Routine Oth 08/07/20 11:00 Ordered Resuscitation Status Routine Resus Stat 08/07/20 09:42 Ordered Medication Orders Butorphanol Tartrate (Butorphanol 1 Mg/Ml Sdv) 1 mg IVPUSH Q1H PRN PRN Reason: Pain Carboprost Tromethamine (Carboprost Tromethamine 250 Mcg/1 Ml Amp) 250 mcg IM ASDIRECTED PRN PRN Reason: Post Hemorrhage Lactated Ringer's (Ringers, Lactated) 1,000 mls @ 150 mls/hr IV ASDIRECTED LANI Oxytocin/Sodium Chloride (Oxytocin 30 Unit/500 Ml-Ns) 30 unit in 500 mls @ 500 mls/hr IV TITRATE LANI Tranexamic Acid 1,000 mg/ (Sodium Chloride) 110 mls @ 660 mls/hr IV ONETIME PRN PRN Reason: Bleeding Lidocaine HCl (Lidocaine 1% 50 Ml Mdv) 50 ml INJECT ONETIME PRN PRN Reason: Laceration repair Methylergonovine Maleate (Methylergonovine 0.2 Mg/1 Ml Amp) 0.2 mg IM ASDIRECTED PRN PRN Reason: Post Hemorrhage Misoprostol (Misoprostol 200 Mcg Tab) 200 mcg PO ONETIME PRN PRN Reason: Post Hemorrhage Nalbuphine HCl (Nalbuphine 10 Mg/1 Ml Vial) 10 mg IVPUSH Q1H PRN PRN Reason: Pain (severe 7-10) Sodium Chloride (Sodium Chloride 0.9% 10 Ml Syringe) 10 ml FLUSH ASDIRECTED PRN PRN Reason: Keep Vein Open Sodium Chloride (Sodium Chloride 0.9% 2.5 Ml Syringe) 2.5 ml FLUSH ASDIRECTED PRN PRN Reason: Keep Vein Open Sodium Chloride (Sodium Chloride 0.9% 10 Ml Sdv) 10 ml IV ASDIRECTED PRN PRN Reason: IV Use Sterile Water (Water For Irrigation,Sterile 1,000 Ml Container) 1,000 ml IRR ASDIRECTED PRN PRN Reason: delivery Assessment/Plan Comment:: Admit A: presenting to L&D at 40 5/7 weeks (BERNARD: 08/02/20 by LMP and confirmed with early ultrasound) with reports of SROM at approximately 0200 this AM (08/07); amnisure positive. GBS negative, Rubella immune, and O+. Vertex by [employer]. Rare contractions. Leaking clear fluid. 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 P: Anticipate ; cytotec to pitocin PRN; epidural PRN; Dr. Colin updated.
[2020-08-07] MEDS: Lactated Ringers 1,000 ML IV SCH ×2 (15:54→17:51)
[2020-08-07] MEDS ORDERED: Ropivacaine HCl/PF 100 ML ONE (17:32)
[2020-08-07] MEDS ORDERED: Ropivacaine 0.2% PF 2 MG/ML 20 ML SDV ONE (17:32)
[2020-08-07] MEDS ORDERED: Phenylephrine/Normal Saline 100 MCG/ML 10 ML Syringe IVPUSH PRN ×2 (17:52→17:55)
[2020-08-07] MEDS ORDERED: ePHEDrine 50 MG/ML SDV IVPUSH PRN ×2 (17:52→17:55)
[2020-08-07] MEDS ORDERED: Ropivacaine HCl/PF 200 MG in Premix Bag 1 BAG EPIDUR ONE (17:53)
--- NOTE | 2020-08-07 18:03 | PCM.PREANE ---
Preanesthetic Assessment - Anesthesia/Transfusion/Family Hx Anesthesia History: Prior Anesthesia Without Reaction Family History of Anesthesia Reaction: No Transfusion History: No Prior Transfusion(s) - Review of Systems General: No Symptoms Pulmonary: No Symptoms Cardiovascular: No Symptoms Gastrointestinal: No Symptoms Neurological: No Symptoms Other: Reports: None - Physical Assessment NPO Status Date: 08/07/20 NPO Status Time: 10:00 Height: 5 ft 6 in Weight: 238 lb ASA Class: 2 Mental Status: Alert & Oriented x3 Airway Class: Mallampati = 2 Dentition: Reports: Normal Dentition - Lab Values: Laboratory Last Values WBC 13.10 K/uL (4.0-11.0) H 08/07/20 12:00 RBC 4.61 M/uL (4.30-5.90) 08/07/20 12:00 Hgb 12.3 g/dL (12.0-16.0) 08/07/20 12:00 Hct 37.9 % (36.0-46.0) 08/07/20 12:00 MCV 82.2 fL (80.0-98.0) 08/07/20 12:00 MCH 26.7 pg (27.0-32.0) L 08/07/20 12:00 MCHC 32.5 g/dL (31.0-37.0) 08/07/20 12:00 RDW Std Deviation 46.6 fl (28.0-62.0) 08/07/20 12:00 RDW Coeff of Dileep 16 % (11.0-15.0) H 08/07/20 12:00 Plt Count 288 K/uL (150-400) 08/07/20 12:00 MPV 9.80 fL (7.40-12.00) 08/07/20 12:00 Nucleated RBC % 0.0 /100WBC 08/07/20 12:00 Nucleated RBCs # 0 K/uL 08/07/20 12:00 Membrane Rupture POSITIVE 08/07/20 09:35 SARS-CoV-2 RNA (SHELLIE) NEGATIVE (NEGATIVE) 08/07/20 12:05 Blood Type O POSITIVE 08/07/20 12:00 Antibody Screen NEGATIVE 08/07/20 12:00 - Allergies Allergies/Adverse Reactions: Allergies Allergy/AdvReac Type Severity Reaction Status Date / Time No Known Allergies Allergy Verified 08/07/20 12:13 - Blood Blood Available: Yes - Anesthesia Plan Pre-Op Medication Ordered: None - Acknowledgements Anesthesia Type Planned: Epidural Pt an Appropriate Candidate for the Planned Anesthesia: Yes Alternatives and Risks of Anesthesia Discussed w Pt/Guardian: Yes Pt/Guardian Understands and Agrees with Anesthesia Plan: Yes PreAnesthesia Questionnaire - Past Health History Medical/Surgical History: Denies Medical/Surgical History Genitourinary History: Reports: Pyelonephritis [employer] History: Reports: Psychiatric History: Reports: Anxiety, Depression Endocrine/Metabolic History: Reports: Obesity/BMI 30+, Other (See Below) Other Endocrine/Metabolic History: pre-diabetic - Infectious Disease History Infectious Disease History: Reports: Chicken Pox - Past Surgical History HEENT Surgical History: Reports: Other (See Below) Other HEENT Surgeries/Procedures: Mandibular mass - SUBSTANCE USE Tobacco Use Status *Q: Current Every Day Tobacco User Tobacco Use Within Last Twelve Months: Cigarettes Recreational Drug Use History: No - HOME MEDS Home Medications: Home Meds . [No Known Home Meds] 08/10/17 [History] - CURRENT (IN HOUSE) MEDS Current Meds: Current Medications Butorphanol Tartrate (Butorphanol 1 Mg/Ml Sdv) 1 mg IVPUSH Q1H PRN PRN Reason: Pain Carboprost Tromethamine (Carboprost Tromethamine 250 Mcg/1 Ml Amp) 250 mcg IM ASDIRECTED PRN PRN Reason: Post Hemorrhage Ephedrine Sulfate (Ephedrine 50 Mg/Ml Sdv) 10 mg IVPUSH Q5M PRN PRN Reason: Hypotension Ephedrine Sulfate (Ephedrine 50 Mg/Ml Sdv) 10 mg IVPUSH Q5M PRN PRN Reason: Hypotension Lactated Ringer's (Ringers, Lactated) 1,000 mls @ 150 mls/hr IV ASDIRECTED LANI Last Admin: 08/07/20 17:51 Dose: 150 mls/hr Documented by: Oxytocin/Sodium Chloride (Oxytocin 30 Unit/500 Ml-Ns) 30 unit in 500 mls @ 500 mls/hr IV TITRATE LANI Tranexamic Acid 1,000 mg/ (Sodium Chloride) 110 mls @ 660 mls/hr IV ONETIME PRN PRN Reason: Bleeding Oxytocin/Sodium Chloride (Oxytocin 30 Unit/500 Ml-Ns) 30 unit in 500 mls @ 2 mls/hr IV TITRATE LANI; Protocol Last Infusion: 08/07/20 16:46 Dose: 4 munits/min, 4 mls/hr Documented by: Ropivacaine 200 mg/ Premix 100 mls @ 0 mls/hr EPIDUR ASDIRECTED ONE Stop: 08/07/20 17:54 Lidocaine HCl (Lidocaine 1% 50 Ml Mdv) 50 ml INJECT ONETIME PRN PRN Reason: Laceration repair Methylergonovine Maleate (Methylergonovine 0.2 Mg/1 Ml Amp) 0.2 mg IM ASDIRECTED PRN PRN Reason: Post Hemorrhage Misoprostol (Misoprostol 200 Mcg Tab) 200 mcg PO ONETIME PRN PRN Reason: Post Hemorrhage Nalbuphine HCl (Nalbuphine 10 Mg/1 Ml Vial) 10 mg IVPUSH Q1H PRN PRN Reason: Pain (severe 7-10) Phenylephrine HCl (Phenylephrine/Normal Saline 100 Mcg/Ml 10 Ml Syringe) 0.1 mg IVPUSH Q5M PRN PRN Reason: Hypotension Phenylephrine HCl (Phenylephrine/Normal Saline 100 Mcg/Ml 10 Ml Syringe) 0.1 mg IVPUSH Q5M PRN PRN Reason: Hypotension Sodium Chloride (Sodium Chloride 0.9% 10 Ml Syringe) 10 ml FLUSH ASDIRECTED PRN PRN Reason: Keep Vein Open Sodium Chloride (Sodium Chloride 0.9% 2.5 Ml Syringe) 2.5 ml FLUSH ASDIRECTED PRN PRN Reason: Keep Vein Open Sodium Chloride (Sodium Chloride 0.9% 10 Ml Sdv) 10 ml IV ASDIRECTED PRN PRN Reason: IV Use Sterile Water (Water For Irrigation,Sterile 1,000 Ml Container) 1,000 ml IRR ASDIRECTED PRN PRN Reason: delivery Discontinued Medications Ropivacaine (Naropin 0.2%) Confirm Administered Dose 100 mls @ as directed .[facility]K-[facility] ONE Stop: 08/07/20 17:33 Misoprostol (Misoprostol 50 Mcg (1/2 Of 100 Mcg) Tab) 50 mcg PO ONETIME ONE Stop: 08/07/20 11:03 Last Admin: 08/07/20 11:20 Dose: 50 mcg Documented by: Ropivacaine (Ropivacaine 0.2% Pf 2 Mg/Ml 20 Ml Sdv) Confirm Administered Dose 60 ml .ROUTE .STK-MED ONE Stop: 08/07/20 17:33
--- NOTE | 2020-08-07 18:03 | PCM48HPAN ---
Post Anesthesia Note - EVALUATION WITHIN 48HRS OF ANESTHETIC Patient Participated in Evaluation: Yes Respiratory Function Stable: Yes Airway Patent: Yes Cardiovascular Function Stable: Yes Hydration Status Stable: Yes Pain Control Satisfactory: Yes Nausea and Vomiting Control Satisfactory: Yes Mental Status Recovered: Yes
[2020-08-07] MEDS ORDERED: fentaNYL 100 MCG/2 ML SDV ONE (19:27)
[2020-08-07] MEDS ORDERED: Bisacodyl 10 MG Supp RECTAL PRN (23:32)
[2020-08-07] MEDS ORDERED: Lanolin 100% Cream 7 GM Tube TOP PRN (23:32)
[2020-08-07] MEDS ORDERED: Witch Hazel Medicated Pads 40/Jar TOP PRN (23:32)
[2020-08-07] MEDS ORDERED: Benzocaine/Menthol 20%-0.5% Spray 78 GM Cannister TOP PRN (23:32)
[2020-08-07] MEDS ORDERED: Acetaminophen 500 MG Tab PO PRN ×2 (23:32)
[2020-08-07] MEDS ORDERED: Docusate Sodium 100 MG Cap PO PRN (23:32)
[2020-08-07] MEDS ORDERED: oxyCODONE 5 MG Tab PO PRN (23:32)
[2020-08-07] MEDS ORDERED: Ibuprofen 400 MG Tab PO PRN (23:32)
--- NOTE | 2020-08-07 23:34 | PCM.DEL ---
L & D Note - General Info Date of Service: 08/07/20 Mother's Due Date: 08/02/20 - Delivery Note Labor: Spontaneous, Augmented by Oxytocin Cervical Ripening Method: Misoprostil Delivery Outcome: Livebirth Delivery Method: Spontaneous Vaginal Delivery-Single Presentation: Vertex Nuchal Cord: None Anesthesia Type: Epidural Amniotic Fluid Description: Clear Laceration: None Placenta: Intact, Spontaneous Cord: 3 Vessels Estimated Blood Loss: 250 Resuscitation Needed: No Score 1 min: 8 Score 5 min: 8 Second Stage Interventions: Reports: Second Nurse Assessed Progress of Descent, Second Nurse Reviewed Contraction Pattern, Second Nurse Reviewed Heart Tones, Encouragement Given, Pushing Effectively, Pushing, Stirrups/Leg Supports Delivery Comments (Free Text/Narrative):: viable NBF; epidural for pain relief; head delivered with good pushing, shoulders and body followed after; no nuchal; baby to mom's abdomen immediately for assessment; APGARs 8/8; cord doubly clamped after cessation of pulsing, cut by patient's grandmother; baby to warmer for further assessment; weight 9 lb 12 oz; placenta delivered grossly intact, gibbons; 3VC; EBL 250 mL; perineum intact; pitocin to IVF; mom and baby left in stable condition with nurse at bedside for assessment - General Info Date of Service: 08/07/20 Admission Dx/Problem (Free Text): Patient Status Order with Admit Dx/Problem 08/07/20 09:42 Patient Status [ADT] Routine 08/07/20 11:10 Admission Status [Patient Status] [ADT] Routine Admission Diagnosis/Problem Admission Diagnosis/Problem 08/07/20 12:23 presenting to L&D at 40 5/7 weeks (BERNARD: 08/02/20 by LMP and confirmed with early ultrasound) with reports of SROM at approximately 0200 this AM (08/07); amnisure positive. GBS negative, Rubella immune, and O+. Vertex by Perry[facility]. Rare contractions. Leaking clear fluid. 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 08/07/20 12:29 Functional Status: Reports: Pain Controlled - Review of Systems General: Reports: No Symptoms HEENT: Reports: No Symptoms Pulmonary: Reports: No Symptoms Cardiovascular: Reports: No Symptoms Gastrointestinal: Reports: No Symptoms Genitourinary: Reports: No Symptoms Musculoskeletal: Reports: No Symptoms Skin: Reports: No Symptoms Neurological: Reports: No Symptoms Psychiatric: Reports: No Symptoms - Patient Data Weight - Most Recent: 238 lb I&O - Last 24 Hours: Intake & Output 08/07/20 08/07/20 08/08/20 14:59 22:59 06:59 Output Total 600 Balance -600 Lab Results Last 24 Hours: Laboratory Results - last 24 hr 08/07/20 08/07/20 08/07/20 Range/Units 09:35 12:00 12:00 WBC 13.10 H (4.0-11.0) K/uL RBC 4.61 (4.30-5.90) M/uL Hgb 12.3 (12.0-16.0) g/dL Hct 37.9 (36.0-46.0) % MCV 82.2 (80.0-98.0) fL MCH 26.7 L (27.0-32.0) pg MCHC 32.5 (31.0-37.0) g/dL RDW Std Deviation 46.6 (28.0-62.0) fl RDW Coeff of Dileep 16 H (11.0-15.0) % Plt Count 288 (150-400) K/uL MPV 9.80 (7.40-12.00) fL Nucleated RBC % 0.0 /100WBC Nucleated RBCs # 0 K/uL Membrane Rupture POSITIVE SARS-CoV-2 RNA (SHELLIE) (NEGATIVE) Blood Type O POSITIVE Antibody Screen NEGATIVE 08/07/20 Range/Units 12:05 WBC (4.0-11.0) K/uL RBC (4.30-5.90) M/uL Hgb (12.0-16.0) g/dL Hct (36.0-46.0) % MCV (80.0-98.0) fL MCH (27.0-32.0) pg MCHC (31.0-37.0) g/dL RDW Std Deviation (28.0-62.0) fl RDW Coeff of Dileep (11.0-15.0) % Plt Count (150-400) K/uL MPV (7.40-12.00) fL Nucleated RBC % /100WBC Nucleated RBCs # K/uL Membrane Rupture SARS-CoV-2 RNA (SHELLIE) NEGATIVE (NEGATIVE) Blood Type Antibody Screen Med Orders - Current: Current Medications Butorphanol Tartrate (Butorphanol 1 Mg/Ml Sdv) 1 mg IVPUSH Q1H PRN PRN Reason: Pain Carboprost Tromethamine (Carboprost Tromethamine 250 Mcg/1 Ml Amp) 250 mcg IM ASDIRECTED PRN PRN Reason: Post Hemorrhage Ephedrine Sulfate (Ephedrine 50 Mg/Ml Sdv) 10 mg IVPUSH Q5M PRN PRN Reason: Hypotension Ephedrine Sulfate (Ephedrine 50 Mg/Ml Sdv) 10 mg IVPUSH Q5M PRN PRN Reason: Hypotension Lactated Ringer's (Ringers, Lactated) 1,000 mls @ 150 mls/hr IV ASDIRECTED LANI Last Admin: 08/07/20 17:51 Dose: 150 mls/hr Documented by: Oxytocin/Sodium Chloride (Oxytocin 30 Unit/500 Ml-Ns) 30 unit in 500 mls @ 500 mls/hr IV TITRATE LANI Tranexamic Acid 1,000 mg/ (Sodium Chloride) 110 mls @ 660 mls/hr IV ONETIME PRN PRN Reason: Bleeding Oxytocin/Sodium Chloride (Oxytocin 30 Unit/500 Ml-Ns) 30 unit in 500 mls @ 2 mls/hr IV TITRATE LANI; Protocol Last Infusion: 08/07/20 22:08 Dose: 10 munits/min, 10 mls/hr Documented by: Lidocaine HCl (Lidocaine 1% 50 Ml Mdv) 50 ml INJECT ONETIME PRN PRN Reason: Laceration repair Methylergonovine Maleate (Methylergonovine 0.2 Mg/1 Ml Amp) 0.2 mg IM ASDIRECTED PRN PRN Reason: Post Hemorrhage Misoprostol (Misoprostol 200 Mcg Tab) 200 mcg PO ONETIME PRN PRN Reason: Post Hemorrhage Nalbuphine HCl (Nalbuphine 10 Mg/1 Ml Vial) 10 mg IVPUSH Q1H PRN PRN Reason: Pain (severe 7-10) Phenylephrine HCl (Phenylephrine/Normal Saline 100 Mcg/Ml 10 Ml Syringe) 0.1 mg IVPUSH Q5M PRN PRN Reason: Hypotension Phenylephrine HCl (Phenylephrine/Normal Saline 100 Mcg/Ml 10 Ml Syringe) 0.1 mg IVPUSH Q5M PRN PRN Reason: Hypotension Sodium Chloride (Sodium Chloride 0.9% 10 Ml Syringe) 10 ml FLUSH ASDIRECTED PRN PRN Reason: Keep Vein Open Sodium Chloride (Sodium Chloride 0.9% 2.5 Ml Syringe) 2.5 ml FLUSH ASDIRECTED PRN PRN Reason: Keep Vein Open Sodium Chloride (Sodium Chloride 0.9% 10 Ml Sdv) 10 ml IV ASDIRECTED PRN PRN Reason: IV Use Sterile Water (Water For Irrigation,Sterile 1,000 Ml Container) 1,000 ml IRR ASDIRECTED PRN PRN Reason: delivery Discontinued Medications Fentanyl (Fentanyl 100 Mcg/2 Ml Sdv) Confirm Administered Dose 100 mcg .ROUTE .STK-MED ONE Stop: 08/07/20 19:28 Ropivacaine (Naropin 0.2%) Confirm Administered Dose 100 mls @ as directed .ROUTE .STK-MED ONE Stop: 08/07/20 17:33 Ropivacaine 200 mg/ Premix 100 mls @ 0 mls/hr EPIDUR ASDIRECTED ONE Stop: 08/07/20 17:54 Misoprostol (Misoprostol 50 Mcg (1/2 Of 100 Mcg) Tab) 50 mcg PO ONETIME ONE Stop: 08/07/20 11:03 Last Admin: 08/07/20 11:20 Dose: 50 mcg Documented by: Ropivacaine (Ropivacaine 0.2% Pf 2 Mg/Ml 20 Ml Sdv) Confirm Administered Dose 60 ml .ROUTE .STK-MED ONE Stop: 08/07/20 17:33 - Exam General: Alert, Oriented, Cooperative, No Acute Distress Lungs: Normal Respiratory Effort Cardiovascular: Regular Rate, Regular Rhythm GI/Abdominal Exam: Soft, Non-Tender (Female) Exam: Normal External Exam Back Exam: Normal Inspection Extremities: Normal Inspection, Normal Range of Motion, Non-Tender, Normal Capillary Refill Skin: Warm, Dry, Intact Neurological: No New Focal Deficit, Normal Speech, Normal Tone Psy/Mental Status: Alert, Normal Affect, Normal Mood - Problem List & Annotations (1) Supervision of normal IUP (intrauterine ) in multigravida SNOMED Code(s): 101789937, 868587517, 451033802 Code(s): Z34.80 - ENCOUNTER FOR SUPRVSN OF NORMAL , UNSP TRIMESTER Status: Acute Priority: High Current Visit: Yes Qualifiers: Trimester: third trimester Qualified Code(s): Z34.83 - Encounter for supervision of other normal , third trimester (2) (spontaneous vaginal delivery) SNOMED Code(s): 843432086 Code(s): O80 - ENCOUNTER FOR FULL-TERM UNCOMPLICATED DELIVERY Status: Acute Priority: High Current Visit: Yes - Problem List Review Problem List Initiated/Reviewed/Updated: Yes - My Orders Last 24 Hours: My Active Orders 08/07/20 09:42 Patient Status [ADT] Routine Non Stress Test [RC] PER UNIT ROUTINE Up ad Julissa [RC] ASDIRECTED Vaginal Exam [RC] Click to Edit Vital Signs [RC] PER UNIT ROUTINE Resuscitation Status Routine 08/07/20 15:30 Oxytocin/0.9 % Sodium Chloride [Oxytocin 30 Unit/500 ML-NS] 30 unit in 500 ml IV TITRATE - Plan Plan:: Admit A: presenting to L&D at 40 5/7 weeks (BERNARD: 08/02/20 by LMP and confirmed with early ultrasound) with reports of SROM at approximately 0200 this AM (08/07); amnisure positive. GBS negative, Rubella immune, and O+. Vertex by [facility]. Rare contractions. Leaking clear fluid. 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 P: Anticipate ; cytotec to pitocin PRN; epidural PRN; Dr. Colin updated. Delivery A: viable NBF; epidural for pain relief; APGARs 8/8; weight 9 lb 12 oz; placenta delivered grossly intact, gibbons; 3VC; EBL 250 mL; perineum intact; pitocin to IVF; mom and baby left in stable condition with nurse at bedside for assessment P: Routine plan of care; Dr. Colin updated.
--- NOTE | 2020-08-08 07:30 | PCM48HPAN ---
Post Anesthesia Note - EVALUATION WITHIN 48HRS OF ANESTHETIC Vital Signs in Normal Range: Yes Patient Participated in Evaluation: Yes Respiratory Function Stable: Yes Airway Patent: Yes Cardiovascular Function Stable: Yes Hydration Status Stable: Yes Pain Control Satisfactory: Yes Nausea and Vomiting Control Satisfactory: Yes Mental Status Recovered: Yes Vital Signs: Last Vital Signs Temp 97.8 F 08/08/20 06:15 Pulse 74 08/08/20 06:15 Resp 16 08/08/20 06:15 BP 156/78 H 08/08/20 06:15 Pulse Ox 98 08/08/20 06:15 - COMMENTS/OBSERVATIONS Free Text/Narrative:: no anesthesia issues.
[2020-08-08] MEDS: Ibuprofen 800 MG Tab PO PRN ×2 (14:38→21:45)
[2020-08-09] MEDS: Ibuprofen 800 MG Tab PO PRN (05:50)
--- NOTE | 2020-08-09 12:07 | PCM.DCSUM1 ---
Discharge Summary - Hospital Course Brief History: G2 now P2 presented to L&D at 40 5/7 weeks (BERNARD: 08/02/20 by LMP and confirmed with early ultrasound) with c/o SROM at approximately 0200 AM on 08/07; amnisure positive. GBS negative, Rubella immune, and O+. Vertex by [facility]. Rare contractions. Leaking clear fluid. 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 Was augmented with cytotec then pitocin. Was also administered the epidural. Delivery: viable NBF; APGARs 8/8; weight 9 lb 12 oz; placenta delivered grossly intact, gibbons; 3VC; EBL 250 mL; perineum intact; Diagnosis: Stroke: No - Discharge Data Discharge Date: 08/09/20 Discharge Disposition: Home, Self-Care 01 Condition: Good - Referral to Home Health Primary Care Physician: PCP None - Patient Instructions Diet: Regular Diet as Tolerated Activity: As Tolerated - Discharge Plan *PRESCRIPTION DRUG MONITORING PROGRAM REVIEWED*: Not Applicable *COPY OF PRESCRIPTION DRUG MONITORING REPORT IN PATIENT ELIJAH: Not Applicable Home Medications: Home Meds . [No Known Home Meds] 08/10/17 [History] Patient Handouts: Care After Vaginal Delivery Referrals: Felicitas Sosa CNM, OPTICAL TECHNICIAN [Mid-] - 09/13/20 2:00 pm - Discharge Summary/Plan Comment DC Time >30 min.: Yes - General Info Date of Service: 08/09/20 Subjective Update: Mother and baby are both doing well. Mother has minimal bleeding, pain well controlled. Ambulate without dizziness. PO intake without N or V. Voiding and passing gas Functional Status: Reports: Pain Controlled - Review of Systems General: Reports: No Symptoms HEENT: Reports: No Symptoms Pulmonary: Reports: No Symptoms Cardiovascular: Reports: No Symptoms Gastrointestinal: Reports: No Symptoms Genitourinary: Reports: No Symptoms Musculoskeletal: Reports: No Symptoms Skin: Reports: No Symptoms Neurological: Reports: No Symptoms Psychiatric: Reports: No Symptoms - Patient Data Vitals - Most Recent: Last Vital Signs Temp 97.5 F 08/09/20 07:40 Pulse 72 08/09/20 07:40 Resp 18 08/09/20 07:40 BP 106/62 08/09/20 07:40 Pulse Ox 96 04/28/21 07:40 Weight - Most Recent: 107.955 kg Med Orders - Current: Current Medications Acetaminophen (Acetaminophen 500 Mg Tab) 500 mg PO Q4H PRN PRN Reason: Pain Acetaminophen (Acetaminophen 500 Mg Tab) 1,000 mg PO Q4H PRN PRN Reason: Pain Benzocaine/Menthol (Benzocaine/Menthol 20%-0.5% [place] 78 Gm Cannister) 78 gm TOP ASDIRECTED PRN PRN Reason: Perineal Comfort Measure Last Admin: 08/08/20 00:47 Dose: 1 canister Documented by: Bisacodyl (Bisacodyl 10 Mg Supp) 10 mg RECTAL ONETIME PRN PRN Reason: Constipation Docusate Sodium (Docusate Sodium 100 Mg Cap) 100 mg PO BID PRN PRN Reason: Constipation Last Admin: 08/08/20 00:48 Dose: 100 mg Documented by: Emollient Ointment (Lanolin 100% Cream 7 Gm Tube) 0 gm TOP ASDIRECTED PRN PRN Reason: Sore Nipples Ibuprofen (Ibuprofen 400 Mg Tab) 400 mg PO Q4H PRN PRN Reason: Pain Last Admin: 08/08/20 00:48 Dose: 400 mg Documented by: Ibuprofen (Ibuprofen 800 Mg Tab) 800 mg PO Q6H PRN PRN Reason: Pain Last Admin: 08/09/20 05:50 Dose: 800 mg Documented by: Oxycodone HCl (Oxycodone 5 Mg Tab) 5 mg PO Q2H PRN PRN Reason: Pain Witch Ginger (Witch Ginger Medicated Pads 40/Jar) 1 pad TOP ASDIRECTED PRN PRN Reason: comfort care Last Admin: 08/08/20 00:47 Dose: 1 unit Documented by: Discontinued Medications Butorphanol Tartrate (Butorphanol 1 Mg/Ml Sdv) 1 mg IVPUSH Q1H PRN PRN Reason: Pain Carboprost Tromethamine (Carboprost Tromethamine 250 Mcg/1 Ml Amp) 250 mcg IM ASDIRECTED PRN PRN Reason: Post Hemorrhage Ephedrine Sulfate (Ephedrine 50 Mg/Ml Sdv) 10 mg IVPUSH Q5M PRN PRN Reason: Hypotension Ephedrine Sulfate (Ephedrine 50 Mg/Ml Sdv) 10 mg IVPUSH Q5M PRN PRN Reason: Hypotension Fentanyl (Fentanyl 100 Mcg/2 Ml Sdv) Confirm Administered Dose 100 mcg .ROUTE .STK-MED ONE Stop: 08/07/20 19:28 Last Admin: 08/08/20 16:22 Dose: Not Given Documented by: Lactated Ringer's (Ringers, Lactated) 1,000 mls @ 150 mls/hr IV ASDIRECTED LANI Last Admin: 08/07/20 17:51 Dose: 150 mls/hr Documented by: Oxytocin/Sodium Chloride (Oxytocin 30 Unit/500 Ml-Ns) 30 unit in 500 mls @ 500 mls/hr IV TITRATE LANI Tranexamic Acid 1,000 mg/ (Sodium Chloride) 110 mls @ 660 mls/hr IV ONETIME PRN PRN Reason: Bleeding Oxytocin/Sodium Chloride (Oxytocin 30 Unit/500 Ml-Ns) 30 unit in 500 mls @ 2 mls/hr IV TITRATE LANI; Protocol Last Infusion: 08/07/20 22:08 Dose: 10 munits/min, 10 mls/hr Documented by: Ropivacaine (Naropin 0.2%) Confirm Administered Dose 100 mls @ as directed .ROUTE .STK-MED ONE Stop: 08/07/20 17:33 Last Admin: 08/08/20 16:24 Dose: Not Given Documented by: Ropivacaine 200 mg/ Premix 100 mls @ 0 mls/hr EPIDUR ASDIRECTED ONE Stop: 08/07/20 17:54 Last Admin: 08/08/20 16:24 Dose: Not Given Documented by: Lidocaine HCl (Lidocaine 1% 50 Ml Mdv) 50 ml INJECT ONETIME PRN PRN Reason: Laceration repair Methylergonovine Maleate (Methylergonovine 0.2 Mg/1 Ml Amp) 0.2 mg IM ASDIRECTED PRN PRN Reason: Post Hemorrhage Misoprostol (Misoprostol 200 Mcg Tab) 200 mcg PO ONETIME PRN PRN Reason: Post Hemorrhage Misoprostol (Misoprostol 50 Mcg (1/2 Of 100 Mcg) Tab) 50 mcg PO ONETIME ONE Stop: 08/07/20 11:03 Last Admin: 08/07/20 11:20 Dose: 50 mcg Documented by: Nalbuphine HCl (Nalbuphine 10 Mg/1 Ml Vial) 10 mg IVPUSH Q1H PRN PRN Reason: Pain (severe 7-10) Phenylephrine HCl (Phenylephrine/Normal Saline 100 Mcg/Ml 10 Ml Syringe) 0.1 mg IVPUSH Q5M PRN PRN Reason: Hypotension Phenylephrine HCl (Phenylephrine/Normal Saline 100 Mcg/Ml 10 Ml Syringe) 0.1 mg IVPUSH Q5M PRN PRN Reason: Hypotension Ropivacaine (Ropivacaine 0.2% Pf 2 Mg/Ml 20 Ml Sdv) Confirm Administered Dose 60 ml .ROUTE .[facility] ONE Stop: 08/07/20 17:33 Last Admin: 08/08/20 16:22 Dose: Not Given Documented by: Sodium Chloride (Sodium Chloride 0.9% 10 Ml Syringe) 10 ml FLUSH ASDIRECTED PRN PRN Reason: Keep Vein Open Sodium Chloride (Sodium Chloride 0.9% 2.5 Ml Syringe) 2.5 ml FLUSH ASDIRECTED PRN PRN Reason: Keep Vein Open Sodium Chloride (Sodium Chloride 0.9% 10 Ml Sdv) 10 ml IV ASDIRECTED PRN PRN Reason: IV Use Sterile Water (Water For Irrigation,Sterile 1,000 Ml Container) 1,000 ml IRR ASDIRECTED PRN PRN Reason: delivery - Exam General: Reports: Alert, Oriented Lungs: Reports: Normal Respiratory Effort Cardiovascular: Reports: Regular Rate GI/Abdominal Exam: Soft, Non-Tender (Female) Exam: Normal External Exam Extremities: Normal Inspection Skin: Reports: Warm Psy/Mental Status: Reports: Alert, Normal Affect, Normal Mood
== END 2020-08-09 14:00 | disposition home or self-care (01) | DRG 807 ==
LOC: MW.OBCHECK 09:28 → MW.OB 11:28 → OBSVTOIN 23:33 → MW.OB 23:33
PROVIDERS: ADMIT Obstetrics & Gynecology; ATTEND Obstetrics & Gynecology
PROC: 10E0XZZ Delivery of Products of Conception, External Approach (ICD-10-PCS; principal; 2020-08-07)
PROC: 3E0P7VZ Introduction of Hormone into Female Reproductive, Via Natural or Artificial Opening (ICD-10-PCS; 2020-08-07)
PROC: 3E0R3BZ Introduction of Anesthetic Agent into Spinal Canal, Percutaneous Approach (ICD-10-PCS; 2020-08-07)
PROC: 00HU33Z Insertion of Infusion Device into Spinal Canal, Percutaneous Approach (ICD-10-PCS; 2020-08-07)
DX: O99.334 Smoking (tobacco) complicating childbirth (principal); Z37.0 Single live birth; F17.210 Nicotine dependence, cigarettes, uncomplicated; O99.214 Obesity complicating childbirth; E66.9 Obesity, unspecified; Z3A.40 40 weeks gestation of pregnancy; Z20.822 Contact with and (suspected) exposure to COVID-19
CPT/HCPCS: 01967; 36415; 51702; 59025; 59409; 84112; 85014; 85018; 85027; 86592; 86850; 86900; 86901; A9270-GY; J2590; J2795; J3010; J7120; U0002

== ENCOUNTER 2021-01-10 11:53 | Emergency (ER) | payer SELFPAY ==
--- NOTE | 2021-01-10 13:26 | EDM.PDOC ---
ED HPI GENERAL MEDICAL PROBLEM - General Chief Complaint: Respiratory Problem Stated Complaint: sob, body aches Time Seen by Provider: 01/10/21 11:54 Source of Information: Reports: Patient History Limitations: Reports: No Limitations - History of Present Illness INITIAL COMMENTS - FREE TEXT/NARRATIVE: HISTORY AND PHYSICAL: History of present illness: Patient is a 25-year-old female who presents emergency room today with concern of headache, generalized body aches, cough, and feeling short of breath over the past 7 to 8 days. Patient states that she was tested for COVID-19 yesterday but does not have the results back. Patient states the only reason she came to the emergency room today is she would like some sort of "breathing treatment ". Patient states that she does not have any health history and denies any worsening shortness of breath over the progression of her symptoms but states that at times she felt like she cannot take a deep breath in and would like to try breathing treatment. Patient denies any other symptoms or concerns. Patient denies fever, chills, chest pain. Denies neck stiff ness, change in vision, syncope, or near syncope. Denies nausea, vomiting, abdominal pain, diarrhea, constipation, or dysuria. Has not noted any blood in urine or stool. Patient has been eating and drinking appropriately. Review of systems: As per history of present illness and below otherwise all systems reviewed and negative. Past medical history: As per history of present illness and as reviewed below otherwise noncontributory. Surgical history: As per history of present illness and as reviewed below otherwise noncontributory. Social history: See social history for further information Family history: As per history of present illness and as reviewed below otherwise noncontributory. Physical exam: General: Patient is alert, oriented, and in no acute distress. Patient sitting comfortably on exam table. Vitals stable and reviewed by me. HEENT: Atraumatic, normocephalic, pupils equal and reactive bilaterally, negative for conjunctival pallor or scleral icterus, mucous membranes moist, throat clear, neck supple, nontender, trachea midline. No drooling or trismus noted. No meningeal signs. No hot potato voice noted. Lungs: Clear to auscultation, breath sounds equal bilaterally, chest nontender. Patient speaking clearly without breathlessness, no wheezing or stridor, no accessory muscle use or respiratory distress. Heart: S1S2, regular rate and rhythm without overt murmur Abdomen: Soft, nondistended, nontender. Negative for masses or hepatosplenomegaly. Negative for costovertebral tenderness. Pelvis: Stable nontender. Genitourinary: Deferred. Rectal: Deferred. Skin: Intact, warm, dry. No lesions or rashes noted. Extremities: Atraumatic, negative for cords or calf pain. Neurovascular unremarkable. Neuro: Awake, alert, oriented. Cranial nerves II through XII unremarkable. Cerebellum unremarkable. Motor and sensory unremarkable throughout. Exam nonfocal. Notes: Signs and symptoms are prompt return to the ED thoroughly discussed with patient. Discussed importance for follow-up with a primary care provider following COVID-19 quarantine restrictions. Voices understanding and is agreeable to plan of care. Denies any further questions or concerns at this time. Diagnostics: COVID-19 Therapeutics: None Prescription: Proair inhaler Impression: COVID-19 viral infection Plan: The patient is informed of any results of their evaluation and diagnostic workup and all questions are answered. They are given discharge instructions and return precautions. The patient is stable for discharge. The patient states they understand and agree with the plan and that they will return if their symptoms get worse or if they have any new concerns. The following information is given to patients seen in the emergency department who are being discharged to home. This information is to outline your options for follow-up care. We provide all patients seen in our emergency department with a follow-up referral. The need for follow-up, as well as the timing and circumstances, are variable depending upon the specifics of your emergency department visit. If you don't have a primary care physician on staff, we will provide you with a referral. We always advise you to contact your personal physician following an emergency department visit to inform them of the circumstance of the visit and for follow-up with them and/or the need for any referrals to a consulting specialist. The emergency department will also refer you to a specialist when appropriate. This referral assures that you have the opportunity for follow-up care with a specialist. All of these measure are taken in an effort to provide you with optimal care, which includes your follow-up. Under all circumstances we always encourage you to contact your private physician who remains a resource for coordinating your care. When calling for follow-up care, please make the office aware that this follow-up is from your recent emergency room visit. If for any reason you are refused follow-up, please contact the [facility] Emergency Department at and asked to speak to the emergency department charge nurse. Definitive disposition and diagnosis as appropriate pending reevaluation and review of above. 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 head Pain Score (Numeric/FACES): 6 - Related Data Allergies Allergy/AdvReac Type Severity Reaction Status Date / Time No Known Allergies Allergy Verified 01/10/21 12:09 Home Meds: Home Meds Albuterol Sulfate [Proair Hfa] 8.5 gm IH Q8HR PRN #1 [email or web address] 01/10/21 [Rx] Past Medical History - Past Health History Medical/Surgical History: Denies Medical/Surgical History HEENT History: Reports: None Cardiovascular History: Reports: None Respiratory History: Reports: None Gastrointestinal History: Reports: None Genitourinary History: Reports: Pyelonephritis CLINICAL DATA RESEARCH History: Reports: Musculoskeletal History: Reports: None Neurological History: Reports: None Psychiatric History: Reports: Anxiety, Depression Endocrine/Metabolic History: Reports: Obesity/BMI 30+, Other (See Below) Other Endocrine/Metabolic History: pre-diabetic Hematologic History: Reports: None Immunologic History: Reports: None Oncologic (Cancer) History: Reports: None Dermatologic History: Reports: None - Infectious Disease History Infectious Disease History: Reports: Chicken Pox - Past Surgical History Head Surgeries/Procedures: Reports: None HEENT Surgical History: Reports: Other (See Below) Other HEENT Surgeries/Procedures: Mandibular mass Social & Family History - Family History Family Medical History: No Pertinent Family History Other Cardiac Family History: Mother of patient has unknown heart disease/infection. : Reports: Dialysis OBGYN: Reports: Musculoskeletal: Reports: Osteoarthritis Endocrine/Metabolic: Reports: Diabetes, type II, Obesity/MBI 30+ - Tobacco Use Tobacco Use Status *Q: Current Some Day Tobacco User Years of Tobacco use: 5 Packs/Tins Daily: 0.2 Used Tobacco, but Quit: No - Caffeine Use Caffeine Use: Reports: None - Recreational Drug Use Recreational Drug Use: No ED ROS GENERAL - Review of Systems Review Of Systems: Comprehensive ROS is negative, except as noted in HPI. ED EXAM, GENERAL - Physical Exam Exam: See Below (See dictation) Course - Vital Signs Last Recorded V/S: Last Vital Signs Temp 98.8 F 01/10/21 13:32 Pulse 77 01/10/21 13:32 Resp 18 01/10/21 13:32 BP 127/71 01/10/21 13:32 Pulse Ox 95 01/10/21 13:32 - Orders/Labs/Meds Labs: Laboratory Tests 01/10/21 Range/Units 12:14 SARS-CoV-2 RNA (SHELLIE) POSITIVE H (NEGATIVE) Departure - Departure Time of Disposition: 13:25 Disposition: Home, Self-Care 01 Clinical Impression: COVID-19 - Discharge Information Prescriptions: Albuterol Sulfate [Proair Hfa] 8.5 gm IH Q8HR PRN #1 [email or web address] PRN Reason: Cough Instructions: What You Should Know About COVID-19 to Protect Yourself and Others - [facility], 10 Things You Can Do to Manage Your COVID-19 Symptoms at Home - [facility] (10/27/2020), How to Wear and Take Off Your Mask - [facility] (07/13/2020), Symptoms of COVID-19 - [facility] (06/05/2020), COVID-19: Quarantine vs. Isolation - [facility] (03/30/2020) Referrals: Kerrie Laughlin PA [Primary Care Provider] - Forms: ED Department Discharge Additional Instructions: You should take acetaminophen 500-1000 mg every 6 hours as needed for fever and muscle aches. Please drink plenty of fluids and get plenty of rest over the next several days. We would recommend that she get a pulse oximeter from the pharmacy to keep an eye on your oxygen level. If your oxygen level drops below 91%, you should return to the ED for evaluation. You should return to the ER sooner if you start having any symptoms of shortness of breath or any other new or concerning symptoms. 1. Your COVID-19 screening is positive. That means you do have the coronavirus and you are considered contagious. Your vital signs and oxygen saturation are well enough that you were able to monitor your symptoms at home. Continue to monitor for trouble breathing, new confusion or inability to arouse, bluish lips or face or any of the other symptoms we discussed -if this occurs please return to the emergency room. 2. Please self quarantine over the next 10 days. Inform any persons that you have been in contact with since you started becoming symptomatic that you have tested positive; they should be made aware and take the appropriate steps as needed. 3. May alternate Tylenol and ibuprofen as needed for pain and fever management. 4. The [facility] will be calling you and following up with you. The [employer] Hotline phone number , They are open Friday - Friday 7am - 7pm. Follow up with your primary care provider for re-evaluation and re-testing after the 10 day quarantine and discuss when you should be seen. [facility] [address] [place] [id number] [facility] [address] [place] [id number] The patient is informed of any results of their evaluation and diagnostic workup and all questions are answered. They are given discharge instructions and return precautions. The patient is stable for discharge. The patient states they understand and agree with the plan and that they will return if their symptoms get worse or if they have any new concerns. The following information is given to patients seen in the emergency department who are being discharged to home. This information is to outline your options for follow-up care. We provide all patients seen in our emergency department with a follow-up referral. The need for follow-up, as well as the timing and circumstances, are variable depending upon the specifics of your emergency department visit. If you don't have a primary care physician on staff, we will provide you with a referral. We always advise you to contact your personal physician following an emergency department visit to inform them of the circumstance of the visit and for follow-up with them and/or the need for any referrals to a consulting specialist. The emergency department will also refer you to a specialist when appropriate. This referral assures that you have the opportunity for follow-up care with a specialist. All of these measure are taken in an effort to provide you with optimal care, which includes your follow-up. Under all circumstances we always encourage you to contact your private physician who remains a resource for coordinating your care. When calling for follow-up care, please make the office aware that this follow-up is from your recent emergency room visit. If for any reason you are refused follow-up, please contact the [facility] Emergency Department at and asked to speak to the emergency department charge nurse. Sepsis Event Note (ED) - Evaluation Sepsis Screening Result: No Definite Risk - Focused Exam Vital Signs: Vital Signs Temp Pulse Resp BP Pulse Ox 01/10/21 13:32 98.8 F 77 18 127/71 95 01/10/21 12:05 97.1 F 90 20 120/72 95
== END 2021-01-10 13:33 | disposition home or self-care (01) ==
LOC: MW.ED 11:53
DX: U07.1 COVID-19 (principal); E66.9 Obesity, unspecified; Z68.39 Body mass index [BMI] 39.0-39.9, adult; Z72.0 Tobacco use
CPT/HCPCS: 99283; U0002

== ENCOUNTER 2023-01-04 10:43 | Emergency (ER) | payer MEDICAID ==
[2023-01-04] MEDS ORDERED: Sodium Chloride 0.9% 1,000 ML IV ONE (11:04)
[2023-01-04] MEDS ORDERED: Dexamethasone 10 MG/ML SDV IVPUSH ONE (11:04)
[2023-01-04] MEDS ORDERED: Ampicillin/Sulbactam Na 3 GM in Sodium Chloride 0.9% 100 ML IV ONE (11:07)
[2023-01-04 11:47] LABS: BASOPHILS PERCENT AUTO 0.1 % (0.0-1.5); EOSINOPHILS ABSOLUTE AUTO 0.4 K/uL (0.0-0.7); EOSINOPHILS PERCENT AUTO 3.9 % (0.0-7.0); HEMATOCRIT 39.5 % (36.0-46.0); HEMOGLOBIN 13.4 g/dL (12.0-16.0); LYMPHOCYTES ABSOLUTE AUTO 2.3 K/uL (0.6-2.4); MEAN CORPUSCULAR HEMOGLOBIN 27.7 pg (27.0-32.0); MEAN CORPUSCULAR HGB CONC 33.9 g/dL (31.0-37.0); MEAN CORPUSCULAR VOLUME 81.8 fL (80.0-98.0); MONOCYTES ABSOLUTE AUTO 0.4 K/uL (0.0-0.8); MONOCYTES PERCENT AUTO 4.7 % (0.0-15.0); NEUTROPHILS ABSOLUTE AUTO 6.4 K/uL (1.4-5.7); NEUTROPHILS PERCENT AUTO 67.3 % (48.0-80.0); NRBC ABSOLUTE 0 K/uL; PLATELET COUNT,PLT 346 K/uL (150-400); RED BLOOD CELL COUNT 4.83 M/uL (4.30-5.90); WHITE BLOOD CELL COUNT,WBC 9.45 K/uL (4.0-11.0)
[2023-01-04 12:15] LABS: A/G RATIO 0.8 (0.9-1.6); BILIRUBIN TOTAL 0.3 mg/dL (0.2-1.0); CALCIUM 7.9 mg/dL (8.5-10.1); CARBON DIOXIDE,CO2 26.1 mmol/L (21.0-32.0); CREATININE 0.8 mg/dL (0.6-1.0); EST CRCL DRUG DOSING (CG) 100.63 mL/min; POTASSIUM,K 3.7 mmol/L (3.5-5.1)
[2023-01-04] MEDS ORDERED: Iopamidol 755 MG/ML 500 ML Multipack Bottle IVPUSH STA (17:48)
== END 2023-01-04 15:50 | disposition left against medical advice (07) ==
LOC: MW.ED 10:43
DX: K11.6 Mucocele of salivary gland (principal); F17.210 Nicotine dependence, cigarettes, uncomplicated; E66.9 Obesity, unspecified; Z68.38 Body mass index [BMI] 38.0-38.9, adult
CPT/HCPCS: 36415; 70491; 73090; 80053; 84703; 85025; 86140; 96365; 96375; 99284; J0295; J1100; J3490; J7030; Q9967

== ENCOUNTER 2024-06-14 17:19 | Emergency (ER) | payer MEDICAID | END 2024-06-14 20:58 | disposition home or self-care (01) | LOC: MW.ED 17:19 | DX: S82.435A Nondisplaced oblique fracture of shaft of left fibula, initial encounter for closed fracture (principal); S82.892A Other fracture of left lower leg, initial encounter for closed fracture; E11.9 Type 2 diabetes mellitus without complications; E66.9 Obesity, unspecified; Z79.84 Long term (current) use of oral hypoglycemic drugs; Z79.899 Other long term (current) drug therapy; Z75.8 Other problems related to medical facilities and other health care; Z68.38 Body mass index [BMI] 38.0-38.9, adult; W00.0XXA Fall on same level due to ice and snow, initial encounter | CPT/HCPCS: 29515; 73562-26-LT; 73562-LT; 73590-26-LT; 73590-LT; 73610-26-LT; 73610-LT; 99283; 99284 ==

== ENCOUNTER 2024-06-23 10:32 | Day surgery (SDC) | payer MEDICAID ==
[~2024-06-23 10:32] MED LIST: Albuterol 0.083% 2.5 MG/3 ML Neb Soln NEB PRN; HYDROmorphone 1 MG/ML Syringe IVPUSH PRN; Metoclopramide 10 MG/2 ML SDV IVPUSH PRN; Morphine 2 MG/ML SYRINGE IVPUSH PRN; Naloxone 0.4 MG/ML SDV IVPUSH PRN; Ondansetron 4 MG/2 ML SDV IVPUSH PRN; Phenylephrine HCl In 0.9% NaCl 1 MG/10 ML Syringe IVPUSH PRN; Scopalamine 1mg/3day Transdermal Patch TOP ONE; ceFAZolin 2 GM in Sodium Chloride 0.9% 50 ML IV ONE; fentaNYL 50 MCG/ML SDV IVPUSH PRN
[2024-06-23] MEDS ORDERED: Ropivacaine 0.5% 5 MG/ML 30 ML SDV ONE (10:41)
[2024-06-23] MEDS ORDERED: fentaNYL 100 MCG/2 ML SDV ONE (10:49)
[2024-06-23] MEDS ORDERED: Propofol 200 MG/20 ML SDV ONE (10:49)
[2024-06-23] MEDS ORDERED: Midazolam 1 MG/ML 2 ML SDV ONE (10:50)
[2024-06-23] MEDS ORDERED: Lidocaine 2% 5 ML SDV ONE ×2 (10:51→10:59)
[2024-06-23] MEDS: Lactated Ringers 1,000 ML IV SCH (10:55)
[2024-06-23] MEDS ORDERED: Lidocaine 1% 5 ML VIAL ONE (10:59)
[2024-06-23] MEDS ORDERED: Rocuronium Bromide 50 MG/5 ML Syringe ONE ×2 (11:08→11:54)
[2024-06-23] MEDS ORDERED: Dexamethasone 4 MG/ML 5 ML MDV ONE (11:50)
[2024-06-23] MEDS ORDERED: Ondansetron 4 MG/2 ML SDV ONE (11:50)
[2024-06-23] MEDS ORDERED: Ketorolac 30 MG/ML SDV ONE (11:50)
[2024-06-23] MEDS ORDERED: Sugammadex Sodium 200 MG/2 ML VIAL IV ONE (11:58)
[2024-06-23] MEDS ORDERED: HYDROmorphone 1 MG/ML Syringe ONE (12:37)
== END 2024-06-23 14:45 | disposition home or self-care (01) ==
LOC: MW.SDS 10:32
PROVIDERS: ATTEND Orthopaedic Surgery
DX: S82.832A Other fracture of upper and lower end of left fibula, initial encounter for closed fracture (principal); E11.9 Type 2 diabetes mellitus without complications; E66.9 Obesity, unspecified; F17.210 Nicotine dependence, cigarettes, uncomplicated; Z68.41 Body mass index [BMI] 40.0-44.9, adult; Z79.899 Other long term (current) drug therapy
CPT/HCPCS: 27792; 76000; 81025; J0131; J1100; J1171; J1885; J2003; J2250; J2405; J2704; J2795; J3010; J7120; 01480; 64447; J3490